=== PATIENT | male | born 1935 | race Caucasian/White ===

== ENCOUNTER 2016-09-24 11:55 | Inpatient (IN) ==
--- NOTE | 2016-09-24 13:13 | PROVIDER DOCUMENTATION ---
This chart was entered by Malia Agrawal Scribe, acting as scribe for Joe Martinez MD. HPI-Musculoskeletal Pain/Inj - GENERAL Chief Complaint: Fall Stated Complaint: Fall Time Seen by Provider: 09/24/16 12:20 Source: patient - HX OF PRESENT ILLNESS-MUSKULOSKELTAL Nature of Presenting Problem: 81 y/o M presents to ED cc of fall. Pt was brought in by EMS. Pt was walking back from [facility] when he tripped and fell. Pt has had recent R hip fracture. Today pt is complain of L mid shaft pain of femur. Pt denies any hip pain. Pt will not move left leg due to pain. When hip is touched pt has no pain. Pt is alert and oriented. Quality of Pain: reports: stabbing (when leg is moved) Onset/Duration: just prior to arrival Timing: other (pain with moving) Modifying Factors: worse with: movement Any recent injury?: Yes (fall) Similar Symptoms Previously?: No Recently seen or treated by another doctor?: No - FALL INJURY Location of Pain/Injury: reports: pelvis (L hip) Pain Radiation: reports: no radiation Reason for Fall: reports: tripped Symptoms prior to fall:: denies: fever/chills/sweaty, chest pain, rapid heart rate, dizzy/lightheaded, headache, seizure Loss of Consciousness: no loss of consciousness Injury Associated Symptoms: reports: trouble walking (L lef pain), other. denies: chest pain, dizziness, joint pain, shortness of breath, vomiting, weakness - HIP/PELVIS PAIN/INJURY Hip Pain Location: reports: hip (L) Pain Radiation: reports: no radiation Context / Method of Injury: reports: fall Associated Symptoms: denies: muscle spasms, numbness in legs/feet, sensory/ motor loss, tingling in legs/feet, weakness in legs/feet Review of Systems - Adult - REVIEW OF SYSTEMS - ADULT Constitutional: denies: chills, fever Eyes: denies: dry eyes, blurred vision, double vision, redness Ears, Nose, Mouth & Throat: denies: ear pain, nose pain Cardiovascular: denies: chest pain, irregular heart rate, orthopnea, palpitations Respiratory: denies: cough, dyspnea on exertion, shortness of breath, wheezing Gastrointestinal: denies: abdominal pain, diarrhea, nausea, vomiting Genitourinary: denies: frequent UTI's, hematuria, hesitency, urinary retention Musculoskeletal: reports: other (L hip/ mid shaft pain). denies: bone pain, back pain, muscle aches Integumentary: denies: hair loss, mole changes, nail changes, skin thickening Neurological: denies: dizziness/vertigo, headache/migraines Past History - Adult - PAST MEDICAL HISTORY-ADULT Review of Records: reports: Old Records Reviewed, Nursing Assessment Review - PRIOR SURGERIES/PROCEDURES Surgical/Procedure History: reports: hernia repair, orthopedic (extremity) (r hip) - PRIOR HOSPITALIZATIONS Prior Hospitalizations: reports: none - IMMUNIZATION STATUS Childhood Immunizations: See Nurse Assessment Flu Vaccine: See Nurse Assessment - FAMILY HISTORY Family History: reviewed, not pertinent - SOCIAL HISTORY Smoking: denies, non-smoker Substance Use: alcohol Alcohol Use Frequency: occasionally Physical Exam-Injury Related - Physical Exam-Injury Related Initial Vital Signs Reviewed: Yes General Appearance: appears well, alert, no apparent distress Eyes: pink conjunctivae Head, Ears, Nose, Mouth & Throat: normocephalic/atraumatic, moist mucous membranes, normal ENT inspection Neck: non-tender, full range of motion, supple Respiratory: chest non-tender, lungs clear, normal breath sounds Cardiovascular: normal peripheral pulses, regular rate, rhythm, no edema Abdominal Exam: normal bowel sounds, non tender, soft Extremity: tenderness (mid shaft L femur), other (L leg no movment due to pain) Integumentary: normal color, warm/dry Neurologic: grossly normal, no motor/sensory deficits Psych/Mental Status: oriented x 3 - Glascow Coma Score Best Eye Response (Fredrick): (4) open spontaneously Best Verbal Response (Fredrick): (5) oriented Best Motor Response (Fredrick): (6) obeys commands [place] Total: 15 Progress - PLAN OF CARE/RESULTS Progress/Plan/Lab Results: Vital Signs - 8 hr 09/24/16 12:04 09/24/16 12:29 Temperature 97.9 F Pulse Rate 48 L 75 Respiratory Rate 20 26 H Blood Pressure 113/52 140/68 O2 Sat by Pulse Oximetry 96 95 Orders Category Date Time Status CHEST-1 VIEW [RAD] Stat Exams 09/24/16 12:44 Completed FEMUR MIN 2 VIEWS LEFT [RAD] Stat Exams 09/24/16 12:29 Completed BNP [PRO B-NATRIURETIC PEPTIDE] Stat Lab 09/24/16 13:37 Uncollected CBC WITH ELECTRONIC DIFF [HEME] Stat Lab 09/24/16 12:28 Uncollected CMP [COMPREHENSIVE METABOLIC PANEL] [CHEM] Stat Lab 09/24/16 12:28 Uncollected PROTIME WITH INR [COAG] Stat Lab 09/24/16 12:50 Uncollected PTT [COAG] Stat Lab 09/24/16 12:50 Uncollected EKG [EKG] Stat Ther 09/24/16 13:36 Ordered PLAN: LABS , XRAY , MONITOR PT. - XRAY 1 XRAY: Left XRAY Study: Hip, Femur 2 XRAY: Bilateral XRAY Study: Chest Impression: Normal XRAY Interpretation: negative - - CONSULTS/PCP/HOSPITALIST Notification #1 *Consult/PCP/Hospitalist*: (ortho) nurse Time Discussed: 13:24 Consult Disposition: other (will have dr patel call back - 1330: Dr. Patel is in surgrey; 1335: Admit to hospitalist) #2 Consult: - Spoke to SHIPPING ROOM SUPERVISOR - Jj Time Discussed: 13:38 Consult Disposition: Admit Departure - Departure Date of Disposition Decision: 09/24/16 Time of Disposition Decision: 13:31 DIAGNOSIS: Hip fracture Qualifiers: Encounter type: initial encounter Fracture type: closed Laterality: left Qualified Code(s): S72.002A - Fracture of unspecified part of neck of left femur , initial encounter for closed fracture Disposition: ADMITTED INPATIENT 09 Certified Medical Emergency: Emergent Condition: Stable Referrals and Follow-Ups: Poli Bragg [Primary Care Provider] - - Critical Care Note This patient required my direct & personal management of CC.: No This chart was documented by the indicated scribe, (Malia Agrawal Scribe) and accurately reflects the services I performed and decisions made by me, Joe Martinez MD, as attested by the provider's signature.
--- NOTE | 2016-09-24 13:30 | Diag Imaging Result Doc PS360 ---
EXAM: CHEST-1 VIEW HISTORY: fall TECHNIQUE: Semiupright COMPARISON: 10/14/2014 FINDINGS: The lungs are well expanded. The heart is not enlarged. The vessels are not distended. There are no infiltrates. No effusion identified. IMPRESSION: Negative exam.. Electronically signed by Bala Wellington 09/24/2016 1:28 PM
--- NOTE | 2016-09-24 13:38 | Diag Imaging Result Doc PS360 ---
EXAM: FEMUR MIN 2 VIEWS LEFT HISTORY: fall/ pain mid shaft of femur TECHNIQUE: Four views COMPARISON: 10/14/2014 FINDINGS: There is a fracture through the femoral neck. Femoral head remains in the acetabulum. Femoral shaft is rotated and slightly superiorly placed. IMPRESSION: Femoral neck fracture Electronically signed by Bala Wellington 09/24/2016 1:36 PM
[2016-09-24 14:00] LABS: MANUAL DIFF NEEDED? NO
[2016-09-24 14:03] LABS: BASO% 0.1 % (0.0-0.8); EOS# 0.05 X1000 (0.0-0.7); EOS% 0.3 % (0.0-10.0); HEMATOCRIT 42.1 % (42.0-52.0); HEMOGLOBIN 14.1 g/dL (14.0-18.0); IMM GRAN# 0.05 X1000 (0.0-0.04); IMM GRAN% 0.3 % (0.0-0.5); LYMPH# 1.47 X1000 (1.2-3.4); LYMPH% 8.9 % (20.5-51.1); MCH 31.5 PG (27-31); MCHC 33.5 g/dL (33-37); MCV 94.2 FL (81-99); MONO# 1.12 X1000 (0.11-0.59); MONO% 6.8 % (1.7-9.3); MPV 10.1 FL (7.4-10.4); NEUT% 83.6 % (42.2-75.2); PLT 267 X1000 (130-400); RBC 4.47 XMIL (4.7-6.1)
[2016-09-24 14:11] LABS: INR 0.99; PROTIME 10.4 Seconds (9.2-11.7); PTT 25.9 Seconds (22.0-36.0)
--- NOTE | 2016-09-24 14:29 | Diag Imaging Result Doc PS360 ---
EXAM: LOWER LEG-LEFT HISTORY: fall TECHNIQUE: Portable left tib-fib, two views COMPARISON: None. FINDINGS: No fracture. No dislocation. IMPRESSION: No acute bony injury. Electronically signed by Bala Wellington 09/24/2016 2:26 PM
[2016-09-24 14:35] LABS: AGAP 11; ALBUMIN 4.2 g/dL (3.5-5.0); ALKALINE PHOSPHATASE 78 U/L (32-122); BUN 12 mg/dL (8-22); CALCIUM 9.5 mg/dL (8.8-10.2); CHLORIDE 102 mmol/L (98-107); COSMO 277; GOT 22 U/L (10-34); GPT 20 U/L (10-44); POTASSIUM 4.1 mmol/L (3.5-5.1); SODIUM 139 mmol/L (136-145); TCO2 26 mmol/L (25-35); TOTAL BILIRUBIN 0.49 mg/dL (0.20-1.00)
[2016-09-24] MEDS ORDERED: MORPHINE IV PRN (15:21)
[2016-09-24] MEDS ORDERED: ZOFRAN IV PRN (15:26)
[2016-09-24] MEDS ORDERED: TYLENOL PO PRN (15:26)
[2016-09-24] MEDS: DILAUDID IV PRN ×3 (15:44→22:05)
[2016-09-24 15:45] LABS: URINE MICRO REVIEW NEEDED? NO; URINE SOURCE CATH
[2016-09-24 15:51] LABS: BILIRUBIN URINE NEGATIVE (NEGATIVE); BLOOD URINE SMALL (NEGATIVE); COLOR YELLOW; GLUCOSE URINE NEGATIVE (NEGATIVE); LEUKOCYTES URINE NEGATIVE (NEGATIVE); NITRITE URINE POSITIVE (NEGATIVE); PH URINE 7.5; PROTEIN URINE 30 mg/dL (NEGATIVE); SP GRAVITY URINE 1.018; TURBIDITY URINE TURBID (CLEAR); UROBILINOGEN URINE NORMAL (NORMAL)
[2016-09-24 15:52] LABS: UR EPITHELIAL CELLS <10 /HPF (<10); URINE BACTERIA 2+ /HPF; URINE CULTURE NEEDED? YES; URINE RBC TNTC /HPF (<10); URINE WBC <10 /HPF (<10)
--- NOTE | 2016-09-24 16:35 | HISTORY AND PHYSICAL ---
CHIEF COMPLAINT: Fall with left hip pain. HISTORY OF PRESENT ILLNESS: Mr. Lakhani is an 81-year-old, male with a history of BPH who had an accidental trip and fall while walking at the [employer] from his assisted living today. He was walking in the grassy area when he had a trip and fall. He denies loss of consciousness. No preceding chest pain, and he did not hit his head. He immediately had left hip pain and came to the ER for evaluation. Left hip x-ray was consistent with left femoral neck fracture. Orthopedics has been consulted and we are going to admit him for further treatment and evaluation. Patient has no other complaints. He denies chest pain, shortness of breath, nausea, vomiting and diarrhea, fevers or chills. It is significant to note that he does have a white count of 16, and we did order a urinalysis on admission and the that has come back positive for urinary tract infection which we are treating with Rocephin. PAST MEDICAL HISTORY: 1. BPH. 2. Right hip fracture requiring repair in 2014. 3. History of transitional cell cancer of the bladder. PAST SURGICAL HISTORY: He has had right hip repair and bladder surgery. SOCIAL HISTORY: Patient denies tobacco, alcohol or drug use. He lives in assisted living. He is and he has strong family support. ALLERGIES: No known drug allergies. FAMILY HISTORY: Noncontributory. REVIEW OF SYSTEMS: Fourteen-point review of systems obtained and found to be negative with the exception of the HPI. ALLERGIES: No known drug allergies. HOME MEDICATIONS: Aspirin 81 mg daily. PHYSICAL EXAMINATION: VITAL SIGNS: Blood pressure is 140/68, heart rate is 75, respiratory rate is 16 , O2 saturation 95% on room air. Temperature is 97.9 degrees. GENERAL: Elderly, male lying in hospital bed. No acute distress. NEUROLOGIC: He is awake, alert, and oriented. He follows commands without focal deficits. HEENT: Head is atraumatic, normocephalic. Pupils equal, round, reactive to light. Oral mucosa is moist. Trachea is midline. No JVD or carotid bruits. CHEST: Clear to auscultation bilaterally. CARDIOVASCULAR: Regular rate and rhythm. S1-S2 is noted. No murmurs, gallops , clicks, rubs. GI: Soft, nondistended, nontender. Bowel sounds positive. EXTREMITIES: Left foot is externally rotated. Neurovascular is intact. No edema. Pulses are diminished and skin is cool to touch. DIAGNOSTIC DATA: Left femur x-ray shows femoral neck fracture. Chest x-ray is negative for acute process. Laboratory data is reviewed. WBC 16.53, hemoglobin 14, hematocrit 42 , platelet count 267,000. INR 0.99. Sodium 139, potassium 4.1, chloride 102, CO2 26, anion gap is 11, BUN 12, creatinine 1.1. Glucose 95, calcium 10.5, AST 22, ALT 20, alkaline phosphatase 78, proBNP 675. Urine is positive for UTI. ASSESSMENT/PLAN: 1. Left hip fracture: Patient has been admitted. We will keep him nothing per oral after midnight. Add pain medication and consult Orthopedics. He will need a social work and physical therapy for discharge. 2. Urinary tract infection: Rocephin has been started, urine cultures are pending. 3. Deep venous thrombosis prophylaxis. We will start Lovenox after surgery. Further recommendations to follow. Dictated by ADORE Caldwell for Radha Quinteros MD cc: ADORE Caldwell MD The patient was seen and examined by me. I agree with the assessment and plan as dictated. JULIANE
--- NOTE | 2016-09-24 17:26 | CONSULTATION ---
DATE OF CONSULTATION: 09/24/2016 ADMITTING PHYSICIAN: Hospitalist CONSULTING PHYSICIANS: Akbar Shukla MD CHIEF COMPLAINT: Left hip pain. HISTORY OF PRESENT ILLNESS: Mr. Lakhani is an 81-year-old white male who experienced a mechanical fall this afternoon walking to the store. He was unable to bear weight. He was brought to the emergency room via ambulance for radiographic evaluation of the left hip, revealing findings consistent with a left femoral neck fracture. He denies any associated injuries, loss of consciousness, head trauma, or visual disturbances. PRIMARY CARE PROVIDER: Poli Bragg MD ALLERGIES: No known drug allergies. PAST MEDICAL HISTORY: 1. Benign prostate prostatic hypertrophy. 2. Unknown history of bladder cancer. PAST SURGICAL HISTORY: 1. Right bipolar hemiarthroplasty in 2014. 2. Transurethral resection of the prostate. 3. Bilateral inguinal herniorrhaphies. SOCIAL HISTORY: The patient is an active 81-year-old. He maintains a residence at a half-way home. He is a nonsmoker. CURRENT MEDICATIONS: Aspirin 81 mg by mouth daily. REVIEW OF SYSTEMS: HEENT: No known history of stroke or cerebrovascular disease. He does have difficulty hearing. Cardiac: Denies any history of coronary artery disease or valvular heart disease. Denies chest pain, pressure, or other anginal equivalent. Pulmonary: The patient is a nonsmoker with no reported chronic lung disease. Gastrointestinal: He is troubled sometimes with intermittent constipation. Denies recent nausea, vomiting, diarrhea, or loss of weight unintentionally. Genitourinary: He has a history of benign prostatic hypertrophy. He has had a transurethral resection. He has a questionable history of bladder cancer. Neurological: Denies extremity radicular pain, weakness, or paresthesia. Musculoskeletal: He is here today for a left hip injury, which is proven to be a left femoral neck fracture. He has previously underwent a right bipolar hip hemiarthroplasty. PHYSICAL EXAMINATION: General: The patient is resting comfortably in bed. He is articulate. He has family at his bedside. He is able answer all questions fully. HEENT: Head is normocephalic and atraumatic. Pupils are equal, round, react to light. Nares are patent. Throat without exudate. Neck: Supple. Cardiovascular: Has a slow rate. He has regular rhythm. No murmurs or gallops are detected. Pulmonary: The patient's lungs are clear bilaterally. Gastrointestinal: The abdomen is flat. Bowel sounds are present. It is nontender. Genitourinary: Not examined. Neurological: Gross motor function is intact with good sensation to soft touch. Musculoskeletal: Left hip no gross deformity edema or ecchymosis is noted. He has a good peripheral pulse. IMPRESSION: Left femoral neck fracture. PLAN: Left bipolar hemiarthroplasty when medically cleared. The risks and benefits were explained to the patient including the risk of anesthesia, , bleeding, infection, damage to tendons, ligaments, nerves, blood vessels, possibility of blood clots and other imponderables were discussed, and the patient wishes to proceed with operative management when indicated. Thank you for including us in the care of Mr. Lakhani. We will continue to follow him with you as necessary and when medically cleared we will proceed with surgery. Dictated by EMMETT Sanchez for Akbar Shukla MD cc: EMMETT Sanchez MD
--- NOTE | 2016-09-24 17:28 | CONSULTATION ---
DATE OF CONSULTATION: 09/24/2016 INDICATION: Abnormal EKG. HISTORY OF PRESENT ILLNESS: Mr. Lakhani is an 81-year-old white male with a history of BPH who apparently was walking from [facility] to his assisted living facility. He apparently slipped and had a fall and injured his left hip. No loss of consciousness. No chest pain and no heart racing preceded the event. Since that time, he has had no issues. He denies any previous history of syncope. He is currently pending operative repair of his left hip fracture. PAST MEDICAL HISTORY: 1. Significant for BPH. 2. History of transitional cell cancer of the bladder. SOCIAL HISTORY: No tobacco use alcohol or drug use. Currently lives in assisted living facility. He is . Daughter is present at the bedside. FAMILY HISTORY: Significant for hypertension. REVIEW OF SYSTEMS: A 10 system review of systems is negative except for those things mentioned in HPI. PHYSICAL EXAMINATION: Vital signs: Afebrile. His heart rates have been somewhat variable, being anywhere from the 40s to 70s. His blood pressure is 140/68. Generally: He is in no acute distress. HEENT: Oropharynx is moist. Normal dentition. Eye examination shows pink conjunctivae. White sclerae. Neck: Examination shows no obvious thyromegaly or thyroid tenderness. Cardiovascular: He sounds to be in a regular rate and rhythm. He is somewhat bradycardic, but regular. No obvious murmurs. He has no S3. He has no lower extremity edema. Chest: Exam is clear to auscultation bilaterally. No increased work of breathing. Abdomen: Soft, nontender, nondistended. He has no obvious organomegaly. Skin: Warm and dry throughout without any rashes. Neurological: He is moving all extremities well. Cranial nerves 2-12 are intact without any sensation deficits. Psychiatric: Alert, oriented and pleasant. He has a normal mood and affect. PERTINENT DATA: The patient had an EKG performed at 1440. This demonstrated sinus rhythm with what appeared to be a 2:1 AV block with sinus rhythm with an atrial rate of 88 beats per minute and a ventricular rate of 44 beats per minute and 2:1 AV block. Subsequently, telemetry at 1546 demonstrated an episode a Wenckebach occurring that was clearly demonstrated. Laboratory data shows a white count is 16.5, hematocrit 42, platelet count of 267,000. INR 0.9. Sodium 139, potassium 4.1, his BUN is 12, creatinine 1.1. His proBNP was 675. ASSESSMENT: 1. Left hip fracture status post fall. 2. Second-degree atrioventricular block type 1 (Wenckebach). PLAN: At this point, I would recommend no delay in his upcoming surgery. He has a second-degree atrioventricular block type 1 which is generally benign. Considering his baseline bradycardia from tion-no-rcqm we can proceed with an outpatient heart monitor. We will also check a thyroid stimulating hormone in the morning. He is not on any atrioventricular christi blocking agents which I would continue to avoid. cc: Elian Smith MD
[2016-09-24 18:13] LABS: FREE T4 0.91 ng/dL (0.93-1.70)
[2016-09-24] MEDS: ROCEPHIN 1 GM/NS 1 GM/50 ML IVPB IV SCH (21:02)
[2016-09-25] MEDS: DILAUDID IV PRN ×3 (03:21→12:58)
--- NOTE | 2016-09-25 05:22 | EKG Report ---
Test Performed on : 09/24/2016 5:04:41 PM Test Reason : 2nd degree block Blood Pressure : / mmHG Vent. Rate : 073 BPM Atrial Rate : 073 BPM P-R Int : 210 ms QRS Dur : 132 ms QT Int : 464 ms P-R-T Axes : 050 074 -69 degrees QTc Int : 511 ms Sinus rhythm. with 1st degree AV block. with occasional premature ventricular complexes. Right bundle branch block T wave abnormality, consider inferolateral ischemia Abnormal ECG When compared with ECG of 24-SEP-2016 14:40, (Unconfirmed) Significant changes have occurred Confirmed by Alex ROSAS, David Rosado ([id number]) on 09/26/2016 9:13:23 AM
[2016-09-25 05:54] LABS: HEMATOCRIT 42.4 % (42.0-52.0); HEMOGLOBIN 13.8 g/dL (14.0-18.0); MCH 31.4 PG (27-31); MCHC 32.5 g/dL (33-37); MCV 96.4 FL (81-99); MPV 10.4 FL (7.4-10.4); RBC 4.4 XMIL (4.7-6.1)
[2016-09-25 06:17] LABS: AGAP 14; BUN 14 mg/dL (8-22); CALCIUM 8.8 mg/dL (8.8-10.2); CHLORIDE 103 mmol/L (98-107); COSMO 286; POTASSIUM 4.2 mmol/L (3.5-5.1); SODIUM 143 mmol/L (136-145); TCO2 26 mmol/L (25-35)
--- NOTE | 2016-09-25 06:57 | EKG Report ---
Test Performed on : 09/25/2016 06:14:37 AM Test Reason : bradycardia Blood Pressure : / mmHG Vent. Rate : 053 BPM Atrial Rate : 053 BPM P-R Int : 212 ms QRS Dur : 112 ms QT Int : 428 ms P-R-T Axes : 056 -53 071 degrees QTc Int : 401 ms Sinus bradycardia. with 1st degree AV block. with fusion complexes Left axis deviation Incomplete right bundle branch block Left ventricular hypertrophy with repolarization abnormality Inferior infarct , age undetermined Abnormal ECG When compared with ECG of 24-SEP-2016 17:04, (Unconfirmed) fusion complexes are now present premature ventricular complexes. are no longer present Incomplete right bundle branch block has replaced Right bundle branch block Inferior infarct is now present Confirmed by Alex ROSAS, David Rosado ([id number]) on 09/26/2016 9:13:37 AM
--- NOTE | 2016-09-25 16:44 | PROGRESS NOTE ---
DATE: 09/25/2016 SUBJECTIVE: The patient is resting comfortably in bed. He does complain of pain in his left leg. OBJECTIVE: Vital Signs: Temperature 97 degrees, blood pressure 162/60, heart rate 34, respirations 12, O2 saturations 94% on room air. General: This is an elderly male, lying in bed in no acute distress. Head: Normocephalic, atraumatic. Heart: S1, S2. Normal. Bradycardic. Lungs: Clear to auscultation bilaterally. No wheezes, no rales, no rhonchi. Abdomen: Positive bowel sounds. Soft, nontender, nondistended. Extremities: No edema. No cyanosis. No calf tenderness. Neurologic: The patient is hard of hearing, but alert and oriented x3. LABS: White blood cell count 8.8, hemoglobin 13, hematocrit 42, platelets 237. Sodium 143, potassium 4.2, chloride 103 CO2 23, BUN 14, creatinine 1, glucose 100. ASSESSMENT AND PLAN: 1. Left femoral neck fracture. The patient is scheduled to undergo surgery today. Management as per the orthopedic team. 2. Urinary tract infection. Continue on Rocephin. The urine culture is currently pending. 3. Bradycardia. The patient has been seen by the jacker feeder. We will continue to monitor the patient on telemetry. Cardiology is following. 4. Gastrointestinal prophylaxis. The patient will be placed on intravenous Protonix. cc: Radha Quinteros MD
[2016-09-25] MEDS ORDERED: NEOSPORIN G.U. IRRIGANT ONE (16:46)
[2016-09-25] MEDS ORDERED: KEFZOL 1 GM/D5W 1 GM/50 ML IVPB ONE (16:57)
[2016-09-25] MEDS ORDERED: DIPRIVAN 1% ONE (19:01)
[2016-09-25] MEDS ORDERED: FENTANYL ONE (19:01)
[2016-09-25] MEDS ORDERED: ZOFRAN IV PRN (19:07)
[2016-09-25] MEDS ORDERED: MORPHINE IV PRN (19:07)
[2016-09-25] MEDS ORDERED: HALDOL IV PRN (19:07)
[2016-09-25] MEDS ORDERED: MILK OF MAGNESIA PO PRN (19:07)
--- NOTE | 2016-09-25 19:12 | OPERATIVE NOTE ---
PROCEDURE DATE: 09/25/2016 PREOPERATIVE DIAGNOSIS: Left displaced femoral neck fracture. POSTOPERATIVE DIAGNOSIS: Left displaced femoral neck fracture. PROCEDURE PERFORMED: Left bipolar hemiarthroplasty with DePuy Corail size 13 press-fit stem, a 28 + 1.5 femoral head, and a 28 x 53 bipolar head. SURGEON: Akbar Shukla MD SAMPLE PATTERNMAKER: Kristan Giles ANESTHESIA: General. INTRAVENOUS FLUIDS: Lactated Ringer's 1300 mL. ESTIMATED BLOOD LOSS: 200 mL. COMPLICATIONS: None. INDICATIONS FOR PROCEDURE: The patient is a pleasant 81-year-old male who is 1 day status post a fall sustaining a left displaced femoral neck fracture. He was admitted to the hospital, and after obtaining preoperative medical clearance, the recommendation to proceed to proceed with left bipolar hemiarthroplasty of the left hip was offered. The risks and benefits of surgery were explained including the risks of anesthesia, , bleeding, infection, failure to relieve pain, postoperative stiffness, nerve injury, blood clots, and other imponderables. All questions were answered. The patient and family wished to proceed with surgery. DETAILS OF OPERATION: The patient was taken to the operating room and placed supine on operating room table. Once adequate anesthesia was obtained, the patient was placed in a right lateral decubitus position on a beanbag with an axillary roll. The left hip was subsequently prepped and draped in the usual sterile fashion. A standard lateral incision was made along the hip, and a posterior approach was performed. The fascia nir was incised in line with the surgical incision. A Charnley retractor was placed. Elevation of the soft tissue was then performed. The piriformis tendon was identified, and a stay suture was placed. The piriformis tendon along with the short external rotators were elevated and retracted posteriorly. A T-shaped capsulotomy was then performed. Stay sutures were placed at the ends of the articular surface. A corkscrew was used to remove the femoral head. Attention was then turned to the proximal to the femur. A box cutting guide was placed, followed by a handle sewer, into the intramedullary canal. Sequential broaching was then performed up to a size 13 press-fit stem. It was countersunk with a 12, and a calcar planer was placed. The size 13 broach had a good fit. A trial head and neck length sizes were performed and a 28 +1.5 femoral head with a 28 x 53 bipolar head had good stability and good range of motion. The trial implants were removed. Copious irrigation was performed with antibiotic pulsatile lavage. A size 13 DePuy Corail press-fit stem was impacted in position, and it had a good fit. A 28 +1.5 femoral head with a 28 x 53 bipolar head were impacted on the stem. The hip was reduced, carried through range of motion. It had good range of motion. The wound was copiously irrigated once again with antibiotic pulsatile lavage. A number 1 Vicryl was used to repair the arthrotomy, followed by number 1 Vicryl to repair the piriformis tendon. The wound was copiously irrigated once again. This was followed by removal of the Charnley retractor. Number 1 Vicryl was used to repair the fascia nir, along with the gluteus anam, in a running fashion. A -0 Vicryl was then used to repair the subcutaneous tissue, followed by skin shaji. Adaptic, sterile 4 x 4's, ABD pad, and tape were applied to the left hip, followed by abduction pillow. The patient tolerated the procedure well with no complications. He was transferred to the recovery room in stable condition. cc: Akbar Shukla MD MTDD
[2016-09-25] MEDS ORDERED: NS 1,000 ML ONE (19:24)
--- NOTE | 2016-09-25 20:40 | Diag Imaging Result Doc PS360 ---
EXAM: HIP 1 VIEW LEFT - 09/25/2016 HISTORY: post op TECHNIQUE: AP left hip COMPARISON: 09/24/2016 FINDINGS: There are postsurgical changes of recent left total hip prosthesis placement. Alignment appears satisfactory. There are no complicating features identified. IMPRESSION: Satisfactory postoperative exam. Electronically signed by Clarke Blount 09/25/2016 8:37 PM
[2016-09-25 21:44] LABS: AGAP 17; BUN 17 mg/dL (8-22); CALCIUM 8.5 mg/dL (8.8-10.2); CHLORIDE 99 mmol/L (98-107); COSMO 275; POTASSIUM 4.7 mmol/L (3.5-5.1); SODIUM 136 mmol/L (136-145); TCO2 20 mmol/L (25-35)
[2016-09-25] MEDS: COLACE PO SCH (21:44)
[2016-09-25] MEDS: TYLENOL PO SCH (21:44)
[2016-09-25] MEDS: PROTONIX IV SCH (21:45)
[2016-09-25] MEDS: SODIUM CHLORIDE 0.9% INJ SCH (21:45)
[2016-09-25] MEDS: NS 1,000 ML IV SCH (21:46)
[2016-09-25 21:49] LABS: CK PROFILE 368 U/L (24-204)
[2016-09-25] MEDS: ROCEPHIN 1 GM/NS 1 GM/50 ML IVPB IV SCH (21:56)
[2016-09-25 22:05] LABS: CK INDEX 1.7 (0.0-2.5); CK-MB 6.17 ng/mL (0.0-5.0)
--- NOTE | 2016-09-26 05:16 | EKG Report ---
Test Performed on : 09/25/2016 7:57:49 PM Test Reason : Runs of V-tach Blood Pressure : / mmHG Vent. Rate : 083 BPM Atrial Rate : 043 BPM P-R Int : 204 ms QRS Dur : 104 ms QT Int : 430 ms P-R-T Axes : 063 -56 053 degrees QTc Int : 505 ms Marked sinus bradycardia. with frequent and consecutive premature ventricular complexes. 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 are now present premature supraventricular complexes. are no longer present Right bundle branch block is no longer present Confirmed by Alex ROSAS, David Rosado ([id number]) on 09/26/2016 9:14:40 AM
[2016-09-26] MEDS: OXY IR PO PRN ×3 (05:26→13:51)
[2016-09-26] MEDS: TYLENOL PO SCH ×3 (05:27→18:50)
[2016-09-26] MEDS: XARELTO PO SCH (05:27)
--- NOTE | 2016-09-26 05:57 | PROGRESS NOTE ---
DATE: 09/26/2016 SUBJECTIVE: The patient is a pleasant 81-year-old male who is one day status post left bipolar hemiarthroplasty. He is currently resting comfortably this morning. He was monitored in the ICU last night. He has been stable through the night and doing well. The patient was placed in the ICU postoperatively for closer cardiac monitoring. He has remained stable through the night. PHYSICAL EXAMINATION: Patient is awake, alert and cooperative with exam. The left lower extremity shows his dressing is intact. Calf is soft. He is neurovascularly distally. He is able to actively dorsiflex and plantar flex. He has active dorsiflexion and plantar flexion. LABORATORY DATA: His labs are pending. IMPRESSION: Postop day #1 status post left bipolar hemiarthroplasty. PLAN: At this point, we will begin therapy once cleared from medical and cardiac standpoint. We will consult Drivability Technician for discharge planning. cc: Akbar Shukla MD
[2016-09-26] MEDS: NS 1,000 ML IV SCH ×2 (06:12→08:47)
[2016-09-26] MEDS: PROTONIX IV SCH ×2 (06:12→21:17)
--- NOTE | 2016-09-26 07:05 | EKG Report ---
Test Performed on : 09/26/2016 06:10:29 AM Test Reason : Elevated CK Blood Pressure : / mmHG Vent. Rate : 065 BPM Atrial Rate : 096 BPM P-R Int : 000 ms QRS Dur : 108 ms QT Int : 532 ms P-R-T Axes : 055 -72 081 degrees QTc Int : 553 ms Sinus rhythm. with 2nd degree AV block (Mobitz I). Left axis deviation Incomplete right bundle branch block Inferior infarct (cited on or before 25-SEP-2016) Prolonged QT Abnormal ECG When compared with ECG of 25-SEP-2016 19:57, (Unconfirmed) premature ventricular complexes. are no longer present Sinus rhythm. is now with 2nd degree AV block (Mobitz I). Questionable change in initial forces of Inferior leads Confirmed by Alex ROSAS, David Rosado ([id number]) on 09/26/2016 9:14:51 AM
[2016-09-26 07:55] LABS: HEMATOCRIT 34.1 % (42.0-52.0); HEMOGLOBIN 11.1 g/dL (14.0-18.0); MCH 31.1 PG (27-31); MCHC 32.6 g/dL (33-37); MCV 95.5 FL (81-99); MPV 11.2 FL (7.4-10.4); RBC 3.57 XMIL (4.7-6.1)
[2016-09-26] MEDS ORDERED: DECADRON ONE (08:02)
[2016-09-26] MEDS ORDERED: LR 1,000 ML ONE (08:02)
[2016-09-26] MEDS ORDERED: XYLOCAINE-MPF 2% ONE (08:02)
[2016-09-26] MEDS ORDERED: ZOFRAN ONE (08:02)
[2016-09-26 08:13] LABS: CALCIUM 8.3 mg/dL (8.8-10.2); POTASSIUM 4.9 mmol/L (3.5-5.1)
[2016-09-26 08:35] LABS: CK INDEX 1.5 (0.0-2.5); CK-MB 7.92 ng/mL (0.0-5.0)
[2016-09-26] MEDS: FERROUS SULFATE PO SCH (08:47)
--- NOTE | 2016-09-26 13:41 | PROGRESS NOTE ---
DATE: 09/26/2016 SUBJECTIVE: The patient is resting comfortably in bed. He has no complaints. OBJECTIVE: Vital Signs: Temperature 98 degrees, blood pressure 112/56, heart rate 88, respirations 21, and O2 saturation is 97% on 2L nasal cannula. General: This is an elderly male, sitting up in bed in no acute distress. HEENT: Head normocephalic, atraumatic. Heart: S1 and S2 normal. Regular rate and rhythm. Lungs: Clear to auscultation bilaterally. No wheezes. No rales. No rhonchi. Abdomen: Positive bowel sounds. Soft, nontender, nondistended. Extremities: No edema. No cyanosis. No calf tenderness. Neurologic: The patient is alert and oriented x3. LABORATORIES: White blood cell count 12, hemoglobin 11, hematocrit 34, platelets 232,000. Sodium 140, potassium 4.9, chloride 104, CO2 of 22, BUN 23, creatinine 1.2, glucose 117. ASSESSMENT AND PLAN: 1. Status post left bipolar hemiarthroplasty. Management as per the orthopedic surgeon. 2. Urinary tract infection. Continue on the current IV antibiotic therapy. The urine culture is growing Gram-negative rods. 3. Leukocytosis. Most likely secondary to the urinary tract infection. Continue with IV antibiotic therapy. 4. Second degree type 1 AV block. Asymptomatic. 5. Gastrointestinal prophylaxis. Continue on Protonix. 6. Deep vein thrombosis prophylaxis. The patient is now on Xarelto. Transfer to the surgical floor. cc: Radha Quinteros MD MTDD
[2016-09-26 13:52] LABS: CK INDEX 1.4 (0.0-2.5); CK-MB 8.32 ng/mL (0.0-5.0)
--- NOTE | 2016-09-26 13:54 | PROGRESS NOTE ---
DATE: 09/26/2016 CHIEF COMPLAINT: Irregular heartbeat and pain in the left hip. SUBJECTIVE: Mr. Lakhani had an uneventful night. He is still hurting in the left hip. His telemetry shows episodes of a first and second AV block and some episodes of aberrant conduction probably rate related bundle branch block. OBJECTIVE: Vital signs: Blood pressure is 121/52, temperature 98.8, pulse 62, and respirations 18. General: The patient is very hard of hearing. He is awake, alert, and follows commands. HEENT: Unremarkable. Chest: Clear to auscultation and percussion. Cardiac: Heart sounds are regular and rhythmic. He does have some periods of pauses. Abdomen: The abdomen is nontender. No masses or hepatomegaly. Extremities: The extremities show very good pulses distally. Neurological: Hard of hearing. Follows commands. LABORATORY DATA: Blood work today shows a hemoglobin of 11.1. Hematocrit is 34.1. Sodium is 140, potassium 4.9, BUN 23, and creatinine 1.2. ProBNP is 534. Troponin is normal. IMPRESSION AND PLAN: 1. Patient who is the first day postop following orthopaedic surgery of left bipolar hemiarthroplasty with a DePuy Corail size [address] Press-[address] stem per Dr[address] Shukla. The reason for it was a left displaced femoral neck fracture. 2. Patient with episodes of second degree type 1 or Wenckebach type of second degree atrioventricular block, asymptomatic. 3. 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 RECOMMENDATIONS: From a cardiology view point no specific intervention is warranted. The patient may be transferred to the [facility] with a monitor unit. No specific pharmacological therapy is required for his cardiac arrhythmia which appears to be benign at this point. Thank you for asking us to participate in this evaluation. Please call us if further assistance is needed. cc: Mat Fallon MD
--- NOTE | 2016-09-26 18:38 | ECHO REPORT ---
ORDER DATE: 09/24/2016 INTERPRETING PHYSICIAN: Dr. Fallon REQUESTING PHYSICIAN: CLINICAL INDICATIONS: An 81-year-old with second-degree AV block, bladder cancer, post hip surgery. M-MODE MEASUREMENTS: Right ventricle: 2.7 cm. Left ventricle end diastole: 4.8 cm. Left ventricle end systole: 3.3 cm. Posterior wall: 1.2 cm. Interventricular septum: 1.2 cm. Left atrium: 4.2 cm. Aortic root: 4.1 cm. SUMMARY OF 2-DIMENSIONAL IMAGING: The left ventricular chamber is moderately enlarged. The global ejection fraction is normal, estimated at 65%. There is some atypical contractility of the interventricular septum. Some "septal bounce" is noted from time to time. The patient seems to have a second-degree AV block of the Wenckebach type with some dropped beats. The mitral valve looks normal. Color flow mapping indicates a mild degree of regurgitation. Pulse wave Doppler of mitral inflow is normal. Tissue Doppler of septal and lateral mitral annulus averages 12 cm per second. Pulmonary venous flow is normal. The aortic valve looks normal. Color flow mapping indicates a mild degree of regurgitation. The tricuspid valve shows trace regurgitation. The inferior vena cava was not visualized on this study. The pulmonic valve looks normal. Color flow mapping indicates a mild degree of regurgitation. The pulmonary pressure is grossly estimated at 31 mmHg. There is no pericardial effusion, masses or thrombus. IMPRESSION: In summary, this study shows: 1. A moderately enlarged left ventricle with preserved systolic function. Ejection fraction 65%. Questionable atypical contractility of the interventricular septum, probably related to a bundle branch block type of phenomenon intermittently. 2. Very mild degree of mitral and pulmonic regurgitation. 3. Mild degree of aortic regurgitation. There is no aortic stenosis. 4. There is no diastolic dysfunction. 5. The pulmonary systolic pressure is estimated at 31 mmHg. Clinical correlation recommended. cc: MD Radha Ballesteros MD
[2016-09-26] MEDS: SODIUM CHLORIDE 0.9% INJ SCH (21:16)
[2016-09-26] MEDS: ROCEPHIN 1 GM/NS 1 GM/50 ML IVPB IV SCH (21:16)
[2016-09-26] MEDS: DULCOLAX PR SCH (21:17)
[2016-09-26] MEDS: COLACE PO SCH (21:17)
[2016-09-27] MEDS: TYLENOL PO SCH ×3 (04:39→18:29)
[2016-09-27] MEDS: XARELTO PO SCH ×2 (04:39→06:49)
[2016-09-27 06:40] LABS: HEMATOCRIT 29.9 % (42.0-52.0); HEMOGLOBIN 9.7 g/dL (14.0-18.0); MCH 31.6 PG (27-31); MCHC 32.4 g/dL (33-37); MCV 97.4 FL (81-99); RBC 3.07 XMIL (4.7-6.1)
[2016-09-27 07:09] LABS: AGAP 12; BUN 21 mg/dL (8-22); CALCIUM 8.3 mg/dL (8.8-10.2); CHLORIDE 104 mmol/L (98-107); COSMO 283; POTASSIUM 4.7 mmol/L (3.5-5.1); SODIUM 140 mmol/L (136-145); TCO2 24 mmol/L (25-35)
[2016-09-27] MEDS: SODIUM CHLORIDE 0.9% INJ SCH ×2 (08:49→20:00)
[2016-09-27] MEDS: FERROUS SULFATE PO SCH (08:49)
[2016-09-27] MEDS: PROTONIX IV SCH ×2 (08:49→20:00)
[2016-09-27] MEDS: OXY IR PO PRN ×2 (08:55→18:32)
--- NOTE | 2016-09-27 10:13 | PROGRESS NOTE ---
DATE: 09/27/2016 SUBJECTIVE: Mr. Lakhani is lying in bed this morning. He is having a little bit of abdominal pain and is having difficulty using the bathroom. He has not had a bowel movement in several days. OBJECTIVE: Left lower extremity exam: Dressing is clean, dry, and intact. He is neurovascularly intact left lower extremity with good dorsiflexion and plantar flexion of the foot and ankle. Good sensation to light touch to the foot as well. ASSESSMENT: Status post left hip hemiarthroplasty. PLAN: I discussed with the nursing service about trying to get Mr. Lakhani to have a bowel movement. They are going to continue to work with him on that. I think that will make him actually feel a lot better. I will continue to follow him. cc: Rajiv Cm MD
[2016-09-27] MEDS ORDERED: NS 500 ML IV ONE (11:52)
[2016-09-27] MEDS: NS 1,000 ML IV SCH ×2 (12:44→23:36)
--- NOTE | 2016-09-27 15:47 | PROGRESS NOTE ---
DATE: 09/27/2016 SUBJECTIVE: The patient is resting comfortably in bed this morning. He has no complaints at this time. OBJECTIVE: Vital Signs: Temperature 98 degrees, blood pressure 116/41, heart rate 102, respirations 18, O2 saturation 96% on room air. General: This is an elderly male, lying in bed in no acute distress. Head: Normocephalic, atraumatic. Heart: S1 and S2 normal. Regular rate and rhythm. Lungs: Clear to auscultation bilaterally. No wheezes. No rales. No rhonchi. Abdomen: Positive bowel sounds. Soft, nontender, nondistended. Extremities: No edema. No cyanosis. No calf tenderness. Neurologic: The patient is alert and oriented x3. LABORATORY: White blood cell count 12, hemoglobin 9.7, hematocrit 29, platelets 191,000. Sodium 140, potassium 4.7, chloride 104, CO2 of 24, BUN 21, creatinine 1, glucose 105: ASSESSMENT AND PLAN: 1. Status post left bipolar hemiarthroplasty. Continue management as per the orthopedic surgeon. Physical Therapy is following. 2. Urinary tract infection secondary to Pseudomonas. Will switch the patient to cefepime. 3. Second-degree, type 1 atrioventricular block. Asymptomatic. 4. Hypotension. Will start the patient on maintenance fluid. 5. Gastrointestinal prophylaxis. Continue on Protonix. 6. Deep vein thrombosis prophylaxis. Continue on Xarelto. 7. Continue with physical therapy. 8. Disposition: The patient will be discharged to rehab this coming week. cc: Radha Quinteros MD
[2016-09-27] MEDS: MAXIPIME 1 GM/NS 1 GM/50 ML IVPB IV SCH (18:32)
[2016-09-27] MEDS: COLACE PO SCH (20:00)
[2016-09-27] MEDS: DULCOLAX PR SCH (20:00)
[2016-09-28] MEDS: MAXIPIME 1 GM/NS 1 GM/50 ML IVPB IV SCH ×2 (03:15→15:31)
[2016-09-28] MEDS: TYLENOL PO SCH ×2 (03:15→10:22)
[2016-09-28] MEDS: XARELTO PO SCH (05:56)
[2016-09-28 06:10] LABS: MANUAL DIFF NEEDED? NO
[2016-09-28 06:23] LABS: BASO% 0.1 % (0.0-0.8); EOS# 0.12 X1000 (0.0-0.7); EOS% 1.2 % (0.0-10.0); HEMATOCRIT 27.9 % (42.0-52.0); HEMOGLOBIN 9.1 g/dL (14.0-18.0); IMM GRAN# 0.03 X1000 (0.0-0.04); IMM GRAN% 0.3 % (0.0-0.5); LYMPH# 1.43 X1000 (1.2-3.4); LYMPH% 13.9 % (20.5-51.1); MCH 31.1 PG (27-31); MCHC 32.6 g/dL (33-37); MCV 95.2 FL (81-99); MONO# 1.34 X1000 (0.11-0.59); MPV 10.8 FL (7.4-10.4); NEUT% 71.5 % (42.2-75.2); PLT 207 X1000 (130-400); RBC 2.93 XMIL (4.7-6.1)
[2016-09-28 07:09] LABS: AGAP 11; BUN 14 mg/dL (8-22); CALCIUM 8.1 mg/dL (8.8-10.2); CHLORIDE 109 mmol/L (98-107); COSMO 288; POTASSIUM 4.3 mmol/L (3.5-5.1); SODIUM 144 mmol/L (136-145); TCO2 24 mmol/L (25-35)
[2016-09-28] MEDS: FERROUS SULFATE PO SCH (08:19)
[2016-09-28] MEDS: PROTONIX IV SCH ×2 (08:19→21:56)
[2016-09-28] MEDS: SODIUM CHLORIDE 0.9% INJ SCH ×2 (08:19→21:56)
[2016-09-28] MEDS: OXY IR PO PRN ×2 (08:22→18:21)
--- NOTE | 2016-09-28 16:34 | PROGRESS NOTE ---
DATE: 09/28/2016 SUBJECTIVE: The patient is resting comfortably in bed. He states that he is ready to go to rehab. OBJECTIVE: Vital Signs: Temperature 98 degrees, blood pressure 116/41, heart rate 102, respirations 18, O2 saturation 94% on room air. General: This is an elderly male lying in bed in no acute distress. Head: Normocephalic, atraumatic. Heart: S1, S2. Normal. Regular rate and rhythm. Lungs: Clear to auscultation bilaterally. No wheezes, no rales. No rhonchi. Abdomen: Positive bowel sounds. Soft, nontender, nondistended. Extremities: No edema. No cyanosis. No calf tenderness. Neurologic: The patient is alert, oriented x3. LABS: Reviewed. ASSESSMENT AND PLAN: 1. Status post left bipolar hemiarthroplasty. Continue with physical therapy. 2. Urinary tract infection secondary to Pseudomonas. Continue on cefepime. 3. Second-degree arteriovenous block type 1. Asymptomatic. 4. Gastrointestinal prophylaxis. Continue on Protonix. 5. Deep vein thrombosis prophylaxis. Continue on Xarelto. 6. Disposition. The patient is stable for discharge to rehab. The patient will be going to [facility]. cc: Radha Quinteros MD
[2016-09-29] MEDS: MAXIPIME 1 GM/NS 1 GM/50 ML IVPB IV SCH (03:08)
--- NOTE | 2016-09-29 05:29 | EKG Report ---
Test Performed on : 09/27/2016 06:32:13 AM Test Reason : abnormal telemetry Blood Pressure : / mmHG Vent. Rate : 093 BPM Atrial Rate : 107 BPM P-R Int : 186 ms QRS Dur : 116 ms QT Int : 420 ms P-R-T Axes : 027 057 -78 degrees QTc Int : 522 ms Sinus tachycardia. with 2nd degree AV block (Mobitz II). with fusion complexes RSR' or QR pattern in V1 suggests right ventricular conduction delay ST \T\ Marked T wave abnormality, consider inferior ischemia ST \T\ Marked T wave abnormality, consider anterolateral ischemia Prolonged QT Abnormal ECG When compared with ECG of 26-SEP-2016 06:10, Significant changes have occurred Confirmed by Alex ROSAS, David Rosado ([id number]) on 09/29/2016 7:57:07 AM
[2016-09-29] MEDS: XARELTO PO SCH (06:00)
[2016-09-29 06:19] LABS: MANUAL DIFF NEEDED? NO
[2016-09-29 06:45] LABS: AGAP 11; BUN 12 mg/dL (8-22); CALCIUM 8.3 mg/dL (8.8-10.2); CHLORIDE 104 mmol/L (98-107); COSMO 279; POTASSIUM 4.2 mmol/L (3.5-5.1); SODIUM 140 mmol/L (136-145); TCO2 25 mmol/L (25-35)
[2016-09-29] MEDS: FERROUS SULFATE PO SCH (08:28)
[2016-09-29] MEDS: SODIUM CHLORIDE 0.9% INJ SCH (08:28)
[2016-09-29] MEDS: PROTONIX IV SCH (08:28)
[2016-09-29] MEDS: OXY IR PO PRN ×2 (08:37→12:57)
[2016-09-29 08:50] LABS: BASO% 0.2 % (0.0-0.8); EOS# 0.22 X1000 (0.0-0.7); EOS% 2.1 % (0.0-10.0); HEMATOCRIT 27.7 % (42.0-52.0); IMM GRAN# 0.02 X1000 (0.0-0.04); IMM GRAN% 0.2 % (0.0-0.5); LYMPH# 1.44 X1000 (1.2-3.4); LYMPH% 13.7 % (20.5-51.1); MCHC 32.5 g/dL (33-37); MCV 95.5 FL (81-99); MONO# 1.12 X1000 (0.11-0.59); MONO% 10.7 % (1.7-9.3); NEUT% 73.1 % (42.2-75.2); PLT 243 X1000 (130-400)
[2016-09-29] MEDS ORDERED: MIRALAX PO SCH (09:00)
--- NOTE | 2016-09-29 10:44 | DISCHARGE SUMMARY ---
ADMISSION DATE: 09/24/2016 DISCHARGE DATE: 09/29/2016 CONSULTATIONS: 1. Elain Smith MD with Cardiology. 2. Akbar Shukla MD with Orthopedics. PERTINENT PROCEDURES: 1. Left bipolar hemiarthroplasty performed by Dr. Shukla. 2. Femur x-ray showed a femoral neck fracture. 3. Echocardiogram showed an EF of 65%. DISCHARGE DIAGNOSES: 1. Fall, status post left bipolar hemiarthroplasty for left displaced femoral neck fracture. The patient going to rehab at [facility]. 2. Urinary tract infection secondary to Pseudomonas. Continue with p.o. antibiotics. 3. Second degree AV block, type 1, asymptomatic. 4. Hypotension, resolved. HOSPITAL COURSE: Mr. Lakhani is an 81-year-old male with a history of BPH, who accidentally tripped and fell while walking at the [facility] from his assisted living. He was walking in the grassy area, when he had a trip and fall. There was no loss of consciousness. No preceding chest pain. He did not hit his head. He did immediately have left hip pain and came to the ED for evaluation. A left hip x-ray was consistent with a left femoral neck fracture. Orthopedics was consulted. He underwent a left hip bipolar hemiarthroplasty with Dr. Shukla once he had cardiac clearance for an abnormal EKG. He had a second-degree AV block, type 1 considering his baseline bradycardia from time to time. He did get clearance for his surgery. He was non symptomatic. The patient was able to work with physical therapy. He has been accepted to [facility]. VITAL SIGNS: At time of discharge, temperature is 97.7, heart rate 99, respirations 12, blood pressure is 116/48, O2 is 98% on room air. DISCHARGE DIET: Healthy heart. DISCHARGE MEDICATIONS: 1. Keflex 500 mg p.o. b.i.d. for 5 days. 2. Oxy IR 5 mg p.o. q.3 hours p.r.n. 3. MiraLAX 17 g p.o. daily. 4. Xarelto 10 mg p.o. daily for 21 days. FOLLOWUP: The patient is being discharged to [facility]. He will follow up with Dr. Shukla in 2 weeks, as well as his primary care physician, Dr. Poli Bragg, after rehab. The patient can return to the ED for any worsening of symptoms. DISCHARGE TIME: 30 minutes. Dictated by ADORE Bermudez for Ramsey Candelario MD cc: MD Poli Duong MD
[2016-09-29 12:55] VITALS: BP 121/51
== END 2016-09-29 13:19 ==
LOC: ED 11:55 → SUATTDRO 14:08 → 4N 14:08 → ICU 09-25 20:20 → 4N 09-26 14:24
PROVIDERS: ATTEND Emergency Medicine

== ENCOUNTER 2016-10-12 13:46 | Inpatient (IN) ==
[2016-10-12 14:49] LABS: MANUAL DIFF NEEDED? NO
[2016-10-12 15:00] LABS: BASO% 0.2 % (0.0-0.8); EOS# 0.03 X1000 (0.0-0.7); EOS% 0.2 % (0.0-10.0); HEMATOCRIT 32.2 % (42.0-52.0); HEMOGLOBIN 9.8 g/dL (14.0-18.0); LYMPH% 12.4 % (20.5-51.1); MCH 30.2 PG (27-31); MCHC 30.4 g/dL (33-37); MCV 99.4 FL (81-99); MONO# 1.54 X1000 (0.11-0.59); MONO% 8.7 % (1.7-9.3); MPV 10.8 FL (7.4-10.4); NEUT% 78.5 % (42.2-75.2); PLT 718 X1000 (130-400); RBC 3.24 XMIL (4.7-6.1)
[2016-10-12 15:12] LABS: CALCIUM 8.8 mg/dL (8.8-10.2); POTASSIUM 5.8 mmol/L (3.5-5.1); TOTAL BILIRUBIN 0.7 mg/dL (0.20-1.00); TOTAL PROTEIN 7.1 g/dL (6.3-8.3)
[2016-10-12] MEDS ORDERED: NS 1,000 ML IV ONE (16:12)
[2016-10-12] MEDS ORDERED: NS 1,000 ML IV SCH (17:00)
[2016-10-12] MEDS ORDERED: TYLENOL PO PRN (17:16)
[2016-10-12] MEDS ORDERED: ZOFRAN IV PRN (17:16)
[2016-10-12] MEDS ORDERED: HUMULIN R IV ONE (17:19)
[2016-10-12] MEDS ORDERED: D50W SYRINGE IV ONE (17:19)
[2016-10-12] MEDS ORDERED: ALBUTEROL 0.5% INH CONC FOR HYPERKALEMIA INH ONE (17:20)
--- NOTE | 2016-10-12 17:20 | PROVIDER DOCUMENTATION ---
This chart was entered by Jaz Duarte Scribe, acting as scribe for Akbar Lee MD. HPI-Abdominal Pain/GI Problem - General Chief Complaint: Chest Pain Stated Complaint: chest pain Time Seen by Provider: 10/12/16 14:15 Source: family Allergies/Adverse Reactions: Patient Allergies Allergy/AdvReac Type Severity Reaction Status Date / Time tamsulosin [From Flomax] Allergy Unknown Verified 10/12/16 14:08 Home Medications: Home Medication List Medication Instructions Recorded Confirmed Last Taken Type Oxycodone I.r. [Oxy Ir] 5 mg PO Q3H PRN PRN #0 capsule 09/28/16 10/12/16 17:00 Rx Polyethylene Glycol 3350 [Miralax] 17 gm PO DAILY powder, packet 09/28/1610/1210/12/16 08:00 Rx Rivaroxaban [Xarelto] 10 mg PO DAILY@0600 tablet 09/28/16 10/12/16 10/12/16 05: 00 Rx Acetaminophen 325 mg PO PRN PRN 10/12/16 10/12/16 10/12/16 01:50 History Multivitamin with Folic Acid 1 tab PO DAILY 10/12/16 10/12/16 10/12/16 08:00 History [Adult One Daily Gummies] - History of Present Illness-ABD Nature of Presenting Problems: 81 Y/O M presents to the ER by EMS with the complain of RLQ pain and bladder discomfort [employer]. pt family states that pt lives in the residential and had his bipolar biopsy on hip was done X2 weeks. pt family states that pt has Lane cathedra removed and is feeling discomfort in bladder. pt was sent by residential for abd pain. pt had O2 stat dropped in residential and they called the EMS. Abdominal Pain Onset Location: reports: RLQ Onset/Duration: reports: just prior to arrival Associated Symptoms: reports: other (RLQ pain and bladder discomfort) Review of Systems - Adult - REVIEW OF SYSTEMS - ADULT Constitutional: reports: no symptoms reported Eyes: reports: no symptoms reported Ears, Nose, Mouth & Throat: reports: no symptoms reported Cardiovascular: reports: no symptoms reported Respiratory: reports: no symptoms reported Gastrointestinal: reports: abdominal pain (RLQ). denies: nausea, vomiting Genitourinary: reports: other (bladder discomfort). denies: dysuria Musculoskeletal: reports: no symptoms reported Integumentary: reports: no symptoms reported Neurological: reports: no symptoms reported Psychiatric: reports: no symptoms reported Endocrine: reports: no symptoms reported Hematologic/Lymphatic: reports: no symptoms reported Allergic/Immunologic: reports: no symptoms reported All Other Systems: Reviewed and Negative Past History - Adult - PAST MEDICAL HISTORY-ADULT Review of Records: reports: Old Records Reviewed, Nursing Assessment Review Major Childhood Illnesses: reports: denies history Cardiovascular: reports: denies history Respiratory: reports: denies history Gastrointestinal: reports: denies history Obstetrical/Gynecological: reports: denies history Genitourinary: reports: denies history Musculoskeletal: reports: denies history Neurological: reports: denies history Psychiatric: reports: denies history Endocrine/Immune: reports: denies history Other Conditions: reports: denies history - PRIOR SURGERIES/PROCEDURES Surgical/Procedure History: reports: hernia repair - PRIOR HOSPITALIZATIONS Prior Hospitalizations: reports: none - IMMUNIZATION STATUS Childhood Immunizations: See Nurse Assessment Flu Vaccine: See Nurse Assessment - FAMILY HISTORY Family History: reviewed, not pertinent Physical Exam-General - PHYSICAL EXAM-ADULT Initial Vital Signs Reviewed: Yes - CONSTITUTIONAL General Appearance: lethargic, slow to respond - EYES Eyes: PERRL/EOMI, pink conjunctivae - HEAD, EARS, NOSE, MOUTH & THROAT HENMT: moist mucous membranes, normal ENT inspection - NECK Neck: non-tender, supple - RESPIRATORY Respiratory: lungs clear, normal breath sounds - CARDIOVASCULAR Cardiovascular: regular rate, rhythm, no edema - GASTROINTESTINAL (ABDOMEN) Abdominal Exam: non tender, soft, other (bladder palpative) - MUSCULOSKELETAL Back Exam: no CVA tenderness, no vertebral tenderness Extremity: no pedal edema, no calf tenderness - SKIN Integumentary: normal color, normal turgor, warm/dry Progress - PLAN OF CARE/RESULTS Progress/Plan/Lab Results: Vital Signs - 8 hr 10/12/16 14:00 Temperature 97.8 F Pulse Rate 62 Respiratory Rate 20 Blood Pressure 135/87 O2 Sat by Pulse Oximetry 93 L Result Diagrams: 10/12/16 13:50 10/12/16 13:50 - EKG 1 Time of EKG reading by physician:: 13:53 EKG Read and Signed by:: Akbar Lee EKG Interpretation (*Must complete 3 of following elements*): Abnormal Rate: 57 Rhythm: Sinus Tachycardia Comments: Abnormal ECG Departure - Departure Date of Disposition Decision: 10/12/16 Time of Disposition Decision: 17:18 DIAGNOSIS: Hypoxemia, UTI (urinary tract infection) due to urinary indwelling Lane catheter Renal failure Qualifiers: Renal failure chronicity: acute Disposition: ADMITTED INPATIENT 09 Certified Medical Emergency: Emergent Condition: Fair Referrals and Follow-Ups: None,PCP [Clinical Support] - - Critical Care Note This patient required my direct & personal management of CC.: Yes Total Time (mins): 30 Critical Care Statement: This patient required my direct personal management to treat or rule out processes, the absence of which, could potentiallly result in sudden, clinically significant life or limb threatening deterioration. This chart was documented by the indicated scribe, (Jaz Duarte Scribe) and accurately reflects the services I performed and decisions made by me, Akbar Lee MD, as attested by the provider's signature.
--- NOTE | 2016-10-12 17:30 | Diag Imaging Result Doc PS360 ---
EXAM: CHEST-PORTABLE HISTORY: dyspnea TECHNIQUE: AP portable chest upright at 1720 COMMENT: There is no evidence of acute cardiac or pulmonary disease. Compared to 09/24/2016 there is been no significant change in the appearance of the chest. IMPRESSION: Stable chest. Electronically signed by Junaid Miller 10/12/2016 5:27 PM
[2016-10-12 17:32] LABS: URINE SOURCE CATH
[2016-10-12 17:33] LABS: URINE MICRO REVIEW NEEDED? YES
[2016-10-12] MEDS ORDERED: ALBUTEROL 0.5% INH CONC FOR HYPERKALEMIA ONE (17:46)
[2016-10-12 17:56] LABS: BILIRUBIN URINE NEGATIVE (NEGATIVE); COLOR YELLOW; GLUCOSE URINE NEGATIVE (NEGATIVE); SP GRAVITY URINE 1.014; TURBIDITY URINE HAZY (CLEAR)
[2016-10-12 17:57] LABS: BLOOD URINE SMALL (NEGATIVE); LEUKOCYTES URINE LARGE (NEGATIVE); NITRITE URINE NEGATIVE (NEGATIVE); PROTEIN URINE 30 mg/dL (NEGATIVE); UROBILINOGEN URINE NORMAL (NORMAL)
[2016-10-12 17:58] LABS: UR AMPHETAMINES QUAL NONE DETECTED (NONE DETECT); UR BARBITUATES QUAL NONE DETECTED (NONE DETECT); UR BENZODIAZEPIN QUAL NONE DETECTED (NONE DETECT); UR CANNABINOIDS QUAL NONE DETECTED (NONE DETECT); UR COCAINE QUAL NONE DETECTED (NONE DETECT); UR METHADONE QUAL NONE DETECTED (NONE DETECT); UR OPIATES QUAL NONE DETECTED (NONE DETECT); UR OXYCODONE QUAL PRESUMPTIVE POSITIVE (NONE DETECT); UR PCP QUAL NONE DETECTED (NONE DETECT); URINE WBC 20-40 /HPF (<10)
[2016-10-12 17:59] LABS: UR EPITHELIAL CELLS <10 /HPF (<10); URINE BACTERIA 3+ /HPF; URINE CULTURE NEEDED? YES; URINE RBC <10 /HPF (<10)
[2016-10-12] MEDS: NS 1,000 ML IV SCH (18:59)
[2016-10-12 19:18] LABS: URINE CASTS GRANULAR PRESENT
[2016-10-12] MEDS: HYTRIN PO SCH (20:21)
[2016-10-12] MEDS: MERREM 500 MG in NS 50 ML IV SCH (20:22)
--- NOTE | 2016-10-12 21:52 | Diag Imaging Result Doc PS360 ---
EXAM: LUNG SCAN / VQ HISTORY: hypoxemia TECHNIQUE: Ventilation/perfusion lung scan: 31.7 mCi of technetium 99m DTPA aerosol for the ventilation study and 5.5 mCi of technetium 99m MAA intravenously for the perfusion portion. COMMENT: There is no evidence of ventilation/perfusion mismatch. There are no absolute perfusion defects. IMPRESSION: Normal study. Electronically signed by Junaid Miller 10/12/2016 9:50 PM
--- NOTE | 2016-10-12 22:36 | HISTORY AND PHYSICAL ---
PRIMARY CARE PHYSICIAN: Dr. Poli Bragg. HISTORY OF PRESENT ILLNESS: Mr. Lakhani is an 81-year-old male with a history of a recent left bipolar hemiarthroplasty performed on 09/25/2016, as well as a transurethral resection of bladder tumors and benign prostatic hyperplasia who was sent via EMS to the hospital after the patient was noted to be hypoxic at the longterm. According to the patient's daughter, the patient has been having issues with urinating for the last several weeks. The patient would complain of frequent urination and only urinate a very small amount. Over the last several days, the patient has been complaining of increasing lower abdominal pain. At the longterm, it was also reported that the patient was having fever and chills. Also the patient's appetite has been very poor essentially since his discharge from the hospital on September. At this time, the patient is resting comfortably. He does not have any pain at this time. Upon arrival to the emergency room, a Lane catheter was placed and the patient so far has put out 1.3 L of urine. The patient was also noted to have a urinary tract infection. The patient denies having any chest pain, headache, or dizziness. The patient has not complained of runny nose or cough. A chest x-ray was done in the emergency room that was unremarkable. According to the patient's daughter, the patient has not really been participating in rehabilitation, due to his generalized weakness and poor appetite. PAST MEDICAL HISTORY: 1. Transitional cell cancer of the bladder. 2. Benign prostatic hyperplasia. PAST SURGICAL HISTORY: 1. Right hip hemiarthroplasty. 2. Transurethral resection of a bladder tumor. 3. Right ureteral double-J stent. 4. Left bipolar hemiarthroplasty. FAMILY HISTORY: Noncontributory due to age. SOCIAL HISTORY: The patient is currently a resident at [facility]. The patient is . The patient denies any tobacco, alcohol, or illicit drug use. ALLERGIES: Flomax. HOME MEDICATIONS: 1. Oxycodone IR 5 mg p.o. every 3 hours p.r.n. for pain. 2. Multivitamin 1 tab oral daily. 3. Xarelto 10 mg p.o. daily. 4. MiraLAX 17 g p.o. daily. REVIEW OF SYSTEMS: A 12 point review of systems has been performed. Please refer to the history of present illness for pertinent positives and negatives. PHYSICAL EXAMINATION: VITAL SIGNS: Temperature 97.8 degrees, blood pressure 135/87, heart rate 62, respirations 20, O2 saturations 93% on room air. GENERAL: This is an elderly male, lying comfortably on the stretcher, in no acute distress. SKIN: No rashes, no lesions, and normal capillary refill. HEAD: Normocephalic, atraumatic. HEART: S1, S2. Normal. Bradycardic. LUNGS: Clear to auscultation bilaterally. No crackles. No rales. ABDOMEN: Positive bowel sounds. Soft, nontender, nondistended. EXTREMITIES: No edema. No cyanosis. No calf tenderness. NEUROLOGIC: The patient is very hard of hearing, but he is alert and oriented x3. No focal neurologic deficits noted. LABS: CBC: White blood cell count 17, hemoglobin 9.8, hematocrit 32, platelets 718,000. D- dimer: 3.0. Chem: Sodium 139, potassium 5.8, chloride 98, CO2 18, BUN 25, creatinine 1.5, glucose 173. AST 43, ALT 17, alkaline phosphatase 107, albumin 3. Urinalysis : Shows large leukocyte esterase, 3+ bacteria. IMAGING DIAGNOSTICS: Chest x-ray: Shows no acute pulmonary disease. ASSESSMENT AND PLAN: 1. Hypoxia. The patient's O2 sats have improved on 2 L nasal cannula. The patient's D-dimer was elevated. However, the patient recently had surgery. We will go ahead and order a V/Q scan. We will also order bronchodilator therapy. 2. Severe urinary retention. After the Lane catheter was placed, the patient put out over a liter of urine. We will consult Urology for further recommendations. 3. Urinary tract infection. A urine culture has been obtained. We will start the patient on IV antibiotic therapy. 4. Acute kidney injury. This is most likely secondary to urinary retention. The patient has been started on IV fluid hydration. We will monitor the patient's renal function closely as well as his urine output. 5. Hyperkalemia. We will treat the patient with the hyperkalemia protocol. We will repeat the potassium level in the morning. 6. Leukocytosis. This is most likely secondary to the patient's underlying urinary tract infection. IV antibiotics have been started. 7. Recent left bipolar hemiarthroplasty. The patient has had surgery on 2016. We will continue on deep vein thrombosis prophylaxis and rehabilitation. 8. 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 Aware. Monitor on telemetry 9. Deep vein thrombosis prophylaxis. We will continue on Xarelto. The plan of care was discussed with the patient and his daughter at the bedside. cc: Radha Quinteros MD MTDD
[2016-10-12 23:25] LABS: POTASSIUM 4.8 mmol/L (3.5-5.1)
[2016-10-13] MEDS: NS 1,000 ML IV SCH (03:19)
[2016-10-13] MEDS: MERREM 500 MG in NS 50 ML IV SCH ×3 (03:19→22:43)
--- NOTE | 2016-10-13 05:36 | EKG Report ---
Test Performed on : 10/12/2016 1:53:49 PM Test Reason : bradycardia Blood Pressure : / mmHG Vent. Rate : 057 BPM Atrial Rate : 057 BPM P-R Int : 182 ms QRS Dur : 110 ms QT Int : 472 ms P-R-T Axes : 023 -72 082 degrees QTc Int : 459 ms Sinus bradycardia. Left axis deviation Right bundle branch block Anterior infarct (cited on or before 12-OCT-2016) Abnormal ECG When compared with ECG of 12-OCT-2016 13:51, (Unconfirmed) No significant change was found Unconfirmed Result
[2016-10-13 06:37] LABS: MANUAL DIFF NEEDED? NO
[2016-10-13] MEDS: XARELTO PO SCH (07:00)
[2016-10-13] MEDS: PRILOSEC PO SCH (07:00)
[2016-10-13 07:04] LABS: RETIC% 1.1 % (0.8-2.1); RETIC-HE 23.2 PG (28.2-36.6)
[2016-10-13 07:06] LABS: HEMOGLOBIN A1C 5.3 % (4.8-6.0); IRON SATURATION 8 %; TIBC 120 ug/dL; TOTAL IRON 10 ug/dL (53-167); UNBOUND IRON 110 ug/dL (112-346)
[2016-10-13 07:15] LABS: CALCIUM 7.9 mg/dL (8.8-10.2); MAGNESIUM 2.3 mg/dL (1.5-2.7); POTASSIUM 4.5 mmol/L (3.5-5.1)
[2016-10-13 07:26] LABS: BASO% 0.2 % (0.0-0.8); HEMATOCRIT 24.5 % (42.0-52.0); HEMOGLOBIN 7.6 g/dL (14.0-18.0); IMM GRAN# 0.03 X1000 (0.0-0.04); IMM GRAN% 0.3 % (0.0-0.5); LYMPH# 1.21 X1000 (1.2-3.4); LYMPH% 10.6 % (20.5-51.1); MCH 29.3 PG (27-31); MCV 94.6 FL (81-99); MONO# 1.46 X1000 (0.11-0.59); MONO% 12.8 % (1.7-9.3); MPV 10.4 FL (7.4-10.4); NEUT% 76.1 % (42.2-75.2); PLT 416 X1000 (130-400); RBC 2.59 XMIL (4.7-6.1)
[2016-10-13 07:29] LABS: FERRITIN 668 ng/mL (30-400)
[2016-10-13] MEDS: DUONEB (A & A) INH PRN ×2 (08:16→15:54)
[2016-10-13] MEDS: MIRALAX PO SCH (08:51)
[2016-10-13] MEDS: ICAR-C PO SCH (08:51)
[2016-10-13] MEDS: MEGACE LIQUID PO SCH (08:51)
[2016-10-13] MEDS: THERA M PLUS PO SCH (08:52)
[2016-10-13] MEDS ORDERED: VITAMIN D PO SCH (09:00)
[2016-10-13] MEDS ORDERED: HYTRIN PO SCH (09:00)
--- NOTE | 2016-10-13 15:38 | PROGRESS NOTE ---
DATE: 10/13/2016 SUBJECTIVE: The patient is resting comfortably in bed. No acute events noted overnight. He appears more awake and alert today. OBJECTIVE: Vital Signs: Temperature 97.8 degrees, blood pressure 124/61, heart rate 89, respirations 18, O2 saturations 98% on 1 L nasal cannula. General: This is an elderly male who is hard of hearing, lying in bed, in no acute distress. Head: Normocephalic, atraumatic. Heart: S1, S2 normal. Regular rate and rhythm. Lungs: Clear to auscultation bilaterally. No wheezes, no rales, no rhonchi. Abdomen: Positive bowel sounds. Soft, nontender, nondistended. Extremities: No edema. No cyanosis. No calf tenderness. Neurologic: The patient is alert and oriented x3. LABS: White blood cell count 11, hemoglobin 7.6, hematocrit 24, platelets 416, 000. Sodium 142, potassium 4.5, chloride 108, CO2 23, BUN 23, creatinine 1.2, glucose 124. ASSESSMENT AND PLAN: 1. Urinary tract infection. The urine culture is growing gram-negative rods. Continue on IV antibiotic therapy. 2. Urinary retention. Continue with Lane catheter. Urology has been consulted. 3. Leukocytosis, improved. Continue on IV antibiotic therapy. 4. Acute kidney injury. Improving. 5. Status post recent left bipolar hemiarthroplasty. Continue with rehabilitation. 6. 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 Aware. 7. Vitamin D deficiency. Start vitamin d replacement. 8. Deep vein thrombosis prophylaxis. The patient is currently on Xarelto. cc: Radha Quinteros MD [facility]
--- NOTE | 2016-10-13 16:44 | CONSULTATION ---
DATE OF CONSULTATION: 10/13/2016 ATTENDING AND REFERRING PHYSICIAN: Hospitalist. HISTORY OF PRESENT ILLNESS: This 81-year-old male is about 2 weeks status post left hip replacement. He states he has been having problems voiding since then. He is followed in the Urology [facility] for transitional cell cancer. His last cancer resection was 17 years ago in the year 1999. The patient was last seen in the Urology Clinic in July 2016. His cystoscopic exam at that time had no evidence of disease. A large prostate was noted. His PSA was 2.42. He is using nutritional supplements to try to help with his obstructive voiding. He tried Flomax 1 time and states it made him dizzy. The patient's prostate length is about 5 cm. He is certainly a candidate for transurethral resection of the prostate. He states that before his hip surgery he was voiding without difficulty. He has no problems with urinary tract infections or stones. PAST MEDICAL HISTORY: As noted in the HPI. CURRENT MEDICATIONS: Are documented on the chart. SOCIAL HISTORY: He lives in a longterm. No tobacco or alcohol use. REVIEW OF SYSTEMS: He has dizziness when he takes Flomax. Otherwise in no problems with diabetes, strokes, seizures, recent pulmonary or bowel problems. PHYSICAL EXAMINATION: General: A thin, age apparent, normally developed white male, oriented in all ways and cooperative. HEENT: Normal for age. Lungs: Clear. Cardiovascular: Regular rate and rhythm. Abdomen: Protuberant, soft, nontender. No hepatosplenomegaly or masses. Normal bowel sounds. : Uncircumcised male with Lane catheter in place draining clear urine. Rectal: Normal sphincter tone. Prostate about 70-80 g, smooth and symmetric. Extremities: No clubbing, cyanosis, or edema. Neurologic: No focal deficits. LABORATORY EVALUATION: He has a white count 11.4, hemoglobin 7.6, hematocrit 24.5, platelets are 416,000. His serum electrolytes are essentially normal. BUN 23, creatinine 1.2. Catheterized urine has large leukocytes, 20-40 white cells, 3+ bacteria. Urine culture is pending. The preliminary is growing gram-negative rods. IMPRESSION: Postoperative urinary retention with urinary tract infection. PLAN: Keep Lane catheter for at least 1 week. Start Uroxatral 10 mg at bedtime, continue antibiotics and then culture specific antibiotics when sensitivities are available. Thank you for this consultation. cc: Vick Salmeron MD
[2016-10-13] MEDS: UROXATRAL PO SCH (22:43)
[2016-10-13] MEDS: HYTRIN PO SCH (22:43)
[2016-10-13] MEDS ORDERED: CHLORASEPTIC SPRAY PRN (23:15)
[2016-10-13] MEDS ORDERED: CHLORASEPTIC SPRAY MT PRN (23:22)
[2016-10-14] MEDS: XARELTO PO SCH (06:29)
[2016-10-14] MEDS: MERREM 500 MG in NS 50 ML IV SCH ×4 (06:30→23:00)
[2016-10-14] MEDS: PRILOSEC PO SCH (06:30)
[2016-10-14 06:43] LABS: MANUAL DIFF NEEDED? NO
[2016-10-14 06:58] LABS: BASO% 0.3 % (0.0-0.8); EOS# 0.28 X1000 (0.0-0.7); EOS% 3.7 % (0.0-10.0); HEMATOCRIT 24.8 % (42.0-52.0); HEMOGLOBIN 7.8 g/dL (14.0-18.0); LYMPH# 1.45 X1000 (1.2-3.4); LYMPH% 19.2 % (20.5-51.1); MCH 29.5 PG (27-31); MCHC 31.5 g/dL (33-37); MCV 93.9 FL (81-99); MONO# 0.69 X1000 (0.11-0.59); MONO% 9.1 % (1.7-9.3); MPV 10.4 FL (7.4-10.4); NEUT% 67.7 % (42.2-75.2); PLT 427 X1000 (130-400); RBC 2.64 XMIL (4.7-6.1)
[2016-10-14 07:13] LABS: AGAP 8; BUN 16 mg/dL (8-22); CALCIUM 8.1 mg/dL (8.8-10.2); CHLORIDE 108 mmol/L (98-107); COSMO 278; POTASSIUM 4.5 mmol/L (3.5-5.1); SODIUM 139 mmol/L (136-145); TCO2 23 mmol/L (25-35)
[2016-10-14] MEDS: MIRALAX PO SCH (09:24)
[2016-10-14] MEDS: THERA M PLUS PO SCH (09:24)
[2016-10-14] MEDS: MEGACE LIQUID PO SCH (09:24)
[2016-10-14] MEDS: ICAR-C PO SCH (09:24)
--- NOTE | 2016-10-14 12:10 | PROGRESS NOTE ---
DATE: 10/14/2016 SUBJECTIVE: The patient states that he does not really have an appetite and does not feel great today. OBJECTIVE: Vital Signs: Temperature 98 degrees, blood pressure 136/62, heart rate 85, respirations 16, O2 saturations 96% on 2 L nasal cannula. General: This is an elderly male, lying in bed, in no acute distress. Head: Normocephalic, atraumatic. Heart: S1, S2. Normal. Regular rate and rhythm. Lungs: Clear to auscultation bilaterally. No wheezes, no rales. No rhonchi. Abdomen: Positive bowel sounds. Soft, nontender, nondistended. Extremities: No edema. No cyanosis. Neurologic: The patient is very hard of hearing, but alert and oriented x3. LABORATORY DATA: White blood cell count 7.5, hemoglobin 7.8, hematocrit 25, platelets 427,000. Sodium 139, potassium 4.5, chloride 108, CO2 23, BUN 16, creatinine 0.9. ASSESSMENT AND PLAN: 1. Urinary tract infection. The urine culture is growing gram-negative rods. We will continue on the current IV antibiotic regimen. We will address the antibiotics accordingly. 2. Urinary retention. Continue with the Lane catheter as ordered by the urologist. The patient was also on Uroxatral. 3. Vitamin D deficiency. Continue on vitamin D replacement. 4. Anemia. We will monitor the patient's hemoglobin and hematocrit closely. 5. Status post recent left bipolar hemiarthroplasty. Continue with rehab. 6. Asymptomatic bradycardia secondary to atrioventricular block. Aware. 7. Deep vein thrombosis prophylaxis. Continue on Xarelto. cc: Radha Quinteros MD
[2016-10-14] MEDS: HYTRIN PO SCH (21:22)
[2016-10-14] MEDS: NORCO-5 PO PRN (21:22)
[2016-10-14] MEDS: UROXATRAL PO SCH (21:22)
[2016-10-15 06:40] LABS: HEMATOCRIT 27.8 % (42.0-52.0); HEMOGLOBIN 8.8 g/dL (14.0-18.0); MCH 29.4 PG (27-31); MCHC 31.7 g/dL (33-37); MPV 10.3 FL (7.4-10.4); RBC 2.99 XMIL (4.7-6.1)
[2016-10-15] MEDS: XARELTO PO SCH (06:56)
[2016-10-15] MEDS: MERREM 500 MG in NS 50 ML IV SCH ×2 (06:56→14:38)
[2016-10-15] MEDS: PRILOSEC PO SCH (06:56)
[2016-10-15 07:07] LABS: AGAP 10; BUN 17 mg/dL (8-22); CALCIUM 8.6 mg/dL (8.8-10.2); CHLORIDE 108 mmol/L (98-107); COSMO 289; POTASSIUM 4.4 mmol/L (3.5-5.1); SODIUM 143 mmol/L (136-145); TCO2 25 mmol/L (25-35)
[2016-10-15] MEDS: THERA M PLUS PO SCH (08:11)
[2016-10-15] MEDS: ICAR-C PO SCH (08:11)
[2016-10-15] MEDS: MEGACE LIQUID PO SCH (08:11)
[2016-10-15] MEDS: MIRALAX PO SCH (08:11)
--- NOTE | 2016-10-15 14:35 | PROGRESS NOTE ---
DATE: 10/15/2016 SUBJECTIVE: The patient is resting comfortably in bed. He has no complaints at this time. OBJECTIVE: Vital Signs: Temperature 97.9 degrees, blood pressure 128/58, heart rate 86, respirations 17. O2 sats 100% on 2 L nasal cannula. General: This is an elderly male, lying comfortably in bed, in no acute distress. Head: Normocephalic, atraumatic. Heart: S1, S2 normal. Regular rate and rhythm. Lungs: Clear to auscultation bilaterally. Abdomen: Positive bowel sounds. Soft, nontender, nondistended. Extremities: No edema. No cyanosis. LABORATORY DATA: Reviewed. ASSESSMENT AND PLAN: 1. Urinary tract infection secondary to extended spectrum beta-lactamase Escherichia coli. The patient is currently on meropenem. Will consult Dr. Muhammad for further IV antibiotic recommendations. 2. Urinary retention. Continue with the Lane catheter plus Uroxatral. 3. Vitamin D deficiency. Continue on vitamin D replacement. 4. Status post recent left bipolar hemiarthroplasty. Continue with rehab. 5. 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 Stable. 6. Deep vein thrombosis prophylaxis. Continue on Xarelto. DISPOSITION: The patient will likely require inpatient rehab. We will await the assessment from the physical therapist. cc: Radha Quinteros MD MTDD
--- NOTE | 2016-10-15 17:00 | CONSULTATION ---
DATE OF CONSULTATION: 10/15/2016 CONCLUSION: This elderly gentleman has a symptomatic extended spectrum beta lactamase producing Escherichia coli urinary tract infection. RECOMMENDATIONS: I have switched the patient from meropenem to ertapenem at a dose of 1 g IV daily for a total of 14 days. Also, I am going to order a renal ultrasound on the patient. DISCUSSION: The patient was extremely hard of hearing. I was unable to obtain a history from him. A history was taken from a review of the patient's chart in the computer. The patient was living in [facility]. He had had difficulty passing his urine, and also he was having dysuria and suprapubic pain. He also was having fever and chills. He has been admitted to the hospital. Here, he was found to have an extended spectrum beta lactamase producing Escherichia coli urinary tract infection. Also, a Lane catheter was inserted in the patient. His laboratory studies show a CBC with a white count of 8110, hemoglobin 8.8, and platelet count 507,000. Creatinine is 0.9. REVIEW OF SYSTEMS: The only definite thing I can say is that the patient is extremely hard of hearing and, because of that, I was unable to obtain a history from him. PAST MEDICAL HISTORY: Positive for transitional cell cancer of the bladder, benign prostatic hypertrophy, and bilateral hip fractures at different times secondary to falling. PAST SURGICAL HISTORY: Positive for bilateral hip replacements, transurethral resection of bladder tumor and placement of a ureteral double-J stent. FAMILY HISTORY: Said to be noncontributory. SOCIAL HISTORY: The patient currently is a resident at [facility]. He is . He does not smoke cigarettes, drink alcoholic beverages, or abuse drugs. ALLERGIES: His chart lists an allergy to Flomax. MEDICATIONS TAKEN AT THE [facility]: Oxycodone, multivitamins, Xarelto, and MiraLAX. PHYSICAL EXAMINATION: Vital Signs: Temperature is 97.9 degrees, pulse 86, respirations 17, blood pressure 128/58. The patient weighs 168 pounds. General: This is a chronically ill-appearing, elderly male. He is in no acute distress. Head, eyes, ears, nose, and throat: Patient is extremely hard of hearing. He can see near objects. He has carious teeth. Neck: No meningismus. Thorax: No increased AP diameter. Lungs: Clear to auscultation. Cardiovascular: Heart rate was regular. There were diminished peripheral pulses. Abdomen: Soft and nontender. Extremities: The patient has an incision in his left hip where he recently had surgery. The incision is intact. It is not red or draining. The metal clips are still in place. The patient has a healed right hip incision. It is not erythematous and it is not swollen or draining. Neurologic: The patient is extremely hard of hearing. He did move his extremities. There was no tremor. I was unable to obtain any history from him due to his difficulty hearing. Integument: No rash noted. Thank you for the consult. cc: Corona Muhammad MD
[2016-10-15] MEDS: HYTRIN PO SCH (21:47)
[2016-10-15] MEDS: INVANZ 1 GM/NS 1 GM/50 ML IVPB IV SCH (21:47)
[2016-10-15] MEDS: NORCO-5 PO PRN (21:47)
[2016-10-15] MEDS: UROXATRAL PO SCH (21:47)
[2016-10-15] MEDS ORDERED: MELATONIN PO ONE (23:18)
[2016-10-16] MEDS: NORCO-5 PO PRN ×3 (03:11→20:28)
[2016-10-16] MEDS: XARELTO PO SCH (06:43)
[2016-10-16] MEDS: PRILOSEC PO SCH (06:43)
[2016-10-16 06:57] LABS: HEMATOCRIT 28.9 % (42.0-52.0); HEMOGLOBIN 9.1 g/dL (14.0-18.0); MCHC 31.5 g/dL (33-37); MCV 95.4 FL (81-99); MPV 10.3 FL (7.4-10.4); RBC 3.03 XMIL (4.7-6.1)
[2016-10-16 07:33] LABS: AGAP 7; BUN 13 mg/dL (8-22); CHLORIDE 108 mmol/L (98-107); COSMO 281; POTASSIUM 4.4 mmol/L (3.5-5.1); SODIUM 141 mmol/L (136-145); TCO2 26 mmol/L (25-35)
[2016-10-16] MEDS: THERA M PLUS PO SCH (08:27)
[2016-10-16] MEDS: MIRALAX PO SCH (08:27)
[2016-10-16] MEDS: MEGACE LIQUID PO SCH (08:27)
[2016-10-16] MEDS: ICAR-C PO SCH (08:27)
--- NOTE | 2016-10-16 14:47 | PROGRESS NOTE ---
DATE: 10/16/2016 PRESENT ILLNESS: The patient has a symptomatic extended spectrum beta lactamase producing Escherichia coli urinary tract infection. MEDICATIONS: The patient is receiving ertapenem, which started yesterday. Prior to that, the patient was on meropenem. Overall, he has had 3 days of antibiotic treatment of his urinary tract infection. PHYSICAL EXAMINATION: Vital Signs: Temperature is 97.8 degrees, pulse 67, respirations 18, blood pressure 133/41. General: This is a somewhat ill-appearing, elderly male. He is in no acute distress. Lungs: Clear to auscultation. Cardiovascular: Regular heart rate. Abdomen and Flanks: Soft, with no tenderness. Neurologic: Patient is awake. He can move his extremities. LABORATORY AND X-RAY: The CBC for today shows a white count of 7580, hemoglobin 9.1, platelet count 474,000. Creatinine 0.8. GFR is greater than 60.. ASSESSMENT AND PLAN: Patient has an Escherichia coli urinary tract infection. The plan is to continue with ertapenem. I have ordered a renal ultrasound just to make sure there is no blockage or abscess involving the kidney. COMORBIDITIES: He has cancer of the bladder and he has benign prostatic hypertrophy. cc: Corona Muhammad MD
[2016-10-16] MEDS ORDERED: NS 250 ML ONE (15:13)
--- NOTE | 2016-10-16 15:23 | PROGRESS NOTE ---
DATE: 10/16/2016 SUBJECTIVE: The patient has no complaints. He wants to get out of here. OBJECTIVE: Vital signs: Blood pressure 101/46, heart rate 68, respiratory rate 18, temperature 97.8 degrees, 98% on room air. Cardiovascular: Regular rate and rhythm. Pulmonary: Bilateral breath sounds. Clear to auscultation. GI: Soft, nontender, nondistended. Bowel sounds are positive. LABORATORY DATA: White count is normal. Hemoglobin and hematocrit 9 and 28, platelets 474,000. Basic was negative. His urine cultures from the 2nd showed ESBL E. coli sensitive to amikacin, imipenem and Bactrim. PROBLEM LIST: 1. Escherichia coli urinary tract infection. Extended-spectrum beta-lactamase. Plan for home IV therapy, another 10 days of IV antibiotics with Invanz. 2. Urinary retention. He has a Lane in place with Uroxatral. 3. Vitamin D deficiency. He is on vitamin D replacement. 4. Bradycardia appears to be stable. DISPOSITION: He will plan to go to [facility] hopefully tomorrow if everything has stabilized. cc: Gilberto Conley MD
--- NOTE | 2016-10-16 15:39 | Diag Imaging Result Doc PS360 ---
EXAM: US RENAL 2 (RETROPER) COMPLETE INDICATION: UTI TECHNIQUE: COMPARISON: None. FINDINGS: There are prominent simple appearing renal cortical cysts bilaterally. The largest cyst on the left is at the lower pole and measures up to 9.3 cm in the greatest dimension. A solitary cyst on the right is at the lower pole as well and measures up to 5.4 cm in the greatest dimension. No solid renal masses or hydronephrosis is appreciated. The right kidney measures 11.5 cm and the left kidney measures 10.7 cm in the greatest longitudinal axes. The right renal cortex measures up to 1.1 cm and the left renal cortex measures up to 1.2 cm in thickness. There is a Lane catheter in the urinary bladder and the bladder is nondistended. IMPRESSION: Bilateral large simple renal cysts as described. Essentially unremarkable, otherwise. Electronically signed by Hunter Albright 10/16/2016 3:37 PM
[2016-10-16 16:02] LABS: INR 1.11; PROTIME 11.7 Seconds (9.2-11.7)
[2016-10-16] MEDS: HYTRIN PO SCH (20:30)
[2016-10-16] MEDS: UROXATRAL PO SCH (20:30)
[2016-10-16] MEDS: INVANZ 1 GM/NS 1 GM/50 ML IVPB IV SCH (20:30)
[2016-10-17] MEDS: PRILOSEC PO SCH (06:00)
[2016-10-17] MEDS: XARELTO PO SCH (06:00)
[2016-10-17 09:17] VITALS: BP 121/68
[2016-10-17] MEDS: MIRALAX PO SCH (09:48)
[2016-10-17] MEDS: THERA M PLUS PO SCH (09:48)
[2016-10-17] MEDS: ICAR-C PO SCH (09:48)
[2016-10-17] MEDS: MEGACE LIQUID PO SCH (09:48)
--- NOTE | 2016-10-17 11:45 | DISCHARGE SUMMARY ---
ADMISSION DATE: 10/12/2016 DISCHARGE DATE: 10/17/2016 CONSULTATIONS: 1. Vick Salmeron MD with Urology. 2. Corona Muhammad MD with Infectious Disease. PERTINENT PROCEDURES: 1. V/Q scan normal. 2. Renal ultrasound showed bilateral large simple renal cysts, essentially unremarkable. DISCHARGE DIAGNOSES: 1. Escherichia coli urinary tract infection, extended-spectrum beta-lactamase. Plan is for another 10 days of IV antibiotics with Invanz. 2. Urinary retention. The patient has a Lane in place which will be discontinued on 10/20/[address] Salmeron. 3. Continue with Uroxatral and Hytrin. 4. Vitamin D deficiency. Continue supplementation. 5. Bradycardia that has been stable throughout admission. 6. Hypoxia, resolved. 7. Acute kidney injury, improved. 8. Hypokalemia, resolved. 9. Recent left bipolar hemiarthroplasty. Patient going back to [facility]. HOSPITAL COURSE: Mr. Lakhani is an 81-year-old male who has a history of left bipolar hemiarthroplasty performed on 09/25/2016 as well as transurethral resection of bladder tumors and BPH who was sent by EMS to the hospital after the patient was noted to be hypoxic at the correction. According to the daughter, he had been having issues urinating for several weeks. He was complaining of frequent urination and only urinated a very small amount. Over the last several days prior to his admission, he had been complaining of increasing lower abdominal pain. [facility] reported fever and chills. Patient's appetite has also been essentially very poor since his discharge on 09/29/2016. Lane catheter was placed in the ED. They initially got out 1.3 L of urine. He was also noted to have a UTI. He was started on supplemental O2. He underwent a V/Q scan that was negative. Initiated bronchodilator therapy. Urology was consulted for his urinary retention. They recommended to leave the Lane in for 7 days and continue on Uroxatral. He was found to have Escherichia coli ESBL urinary tract infection. Dr. Corona Muhammad was consulted. The patient had recently been on meropenem. He has been switched to IV Invanz which he will need for 10 days. The patient does have a PICC line. He underwent a renal ultrasound to rule out any blockage or abscess. It did show bilateral large simple renal cysts but essentially it was unremarkable. He is appropriate for discharge back to [facility] today. VITAL SIGNS: Temperature is 98 degrees, heart rate 92, respirations 18, blood pressure is 121/68, O2 is 97% on room air. DISCHARGE DIET: Regular with Ensure with each meal. DISCHARGE MEDICATIONS: 1. Tylenol 325 mg p.o. p.r.n. 2. Uroxatral 10 mg p.o. at bedtime. 3. Vitamin D 50,000 units p.o. 7 days. 4. Icar C 1 p.o. daily. 5. Megace liquid 400 mg p.o. daily. 6. MVI 200 mcg 1 tab p.o. daily. 7. Oxy IR 5 mg p.o. q.3 h. p.r.n. 8. MiraLAX 17 g p.o. daily. 9. Xarelto 10 mg p.o. daily. This is for a duration of 21 days back on 2016. As a note on the Xarelto, the patient will have 1 more dose of Xarelto and that will be discontinued. 10. Hytrin 2 mg p.o. at bedtime. DISCHARGE INSTRUCTIONS: 1. Patient is being discharged back to [facility] where he will complete his 10 day course of IV antibiotics with Invanz. 2. Patient will need 1 more dose of Xarelto after his bipolar hemiarthroplasty he laughs Lane discontinue on 10/20/2016. 3. Follow up with Dr. Salmeron as well as Dr. Corona Muhammad. 4. The patient can return to the ED for any worsening symptoms. TIME SPENT: Discharge time 30 minutes. Dictated by ADORE Bermudez for Gilberto Conley MD cc: MD Poli Edge MD pt examined, [facility]
--- NOTE | 2016-10-17 12:53 | PROGRESS NOTE ---
DATE: 10/17/2016 PRESENT ILLNESS: The patient has a symptomatic extended spectrum beta lactamase producing Escherichia coli urinary tract infection. MEDICATIONS: The patient is on ertapenem. He is on day 4. I plan to treat for a total of 2 weeks. PHYSICAL EXAMINATION: Vital Signs: Temperature is 98 degrees, pulse 92, respirations 18, blood pressure 121/68. Generally, this is a chronically ill-appearing, elderly male. He is in no acute distress. Lungs: Clear to auscultation. Cardiovascular: Regular heart rate. Abdomen and flank soft and nontender. Neurologic: Patient is awake. He has marked decrease in his hearing. LABORATORY DATA AND X-RAY: CBC for today showed a white count of 7580, hemoglobin 9.1, and platelet count 474,000. Creatinine is 0.8. GFR is greater than 60. The patient's renal ultrasound showed the patient had bilateral renal cysts but , otherwise, no abnormalities. ASSESSMENT AND PLAN: Patient has Escherichia coli urinary tract infection. I am going to treat him with ertapenem to complete a 14-day treatment course. The patient's comorbidities include cancer of the bladder and benign prostatic hypertrophy. ADDENDUM: Patient is discharged from hospital to skilled nursing today. cc: Corona Muhammad MD MTDD
== END 2016-10-17 15:40 ==
LOC: ED 13:46 → SUATTDRO 18:22 → 3N 18:22
PROVIDERS: ATTEND Internal Medicine

== ENCOUNTER 2016-11-22 15:19 | Inpatient (IN) ==
[2016-11-22 15:54] LABS: MANUAL DIFF NEEDED? NO
[2016-11-22 16:03] LABS: BASO% 0.1 % (0.0-0.8); HEMATOCRIT 35.8 % (42.0-52.0); HEMOGLOBIN 11.4 g/dL (14.0-18.0); IMM GRAN# 0.04 X1000 (0.0-0.04); IMM GRAN% 0.2 % (0.0-0.5); LYMPH# 1.37 X1000 (1.2-3.4); LYMPH% 6.9 % (20.5-51.1); MCH 27.9 PG (27-31); MCHC 31.8 g/dL (33-37); MCV 87.7 FL (81-99); MONO% 8.6 % (1.7-9.3); MPV 9.9 FL (7.4-10.4); NEUT% 84.2 % (42.2-75.2); PLT 539 X1000 (130-400); RBC 4.08 XMIL (4.7-6.1)
[2016-11-22 16:31] LABS: URINE SOURCE CATH
[2016-11-22 16:42] LABS: BILIRUBIN URINE NEGATIVE (NEGATIVE); BLOOD URINE SMALL (NEGATIVE); COLOR YELLOW; GLUCOSE URINE NEGATIVE (NEGATIVE); LEUKOCYTES URINE LARGE (NEGATIVE); NITRITE URINE POSITIVE (NEGATIVE); PROTEIN URINE 100 mg/dL (NEGATIVE); SP GRAVITY URINE 1.027; TURBIDITY URINE HAZY (CLEAR); UROBILINOGEN URINE NORMAL (NORMAL)
[2016-11-22 16:44] LABS: UR EPITHELIAL CELLS <10 /HPF (<10); URINE BACTERIA 4+ /HPF; URINE CULTURE NEEDED? YES; URINE MICRO REVIEW NEEDED? YES; URINE RBC 20-40 /HPF (<10); URINE WBC TNTC /HPF (<10)
[2016-11-22 16:49] LABS: URINE CASTS GRANULAR PRESENT; URINE CRYSTALS CA OXALATE PRESENT
[2016-11-22 16:57] LABS: AGAP 13; ALBUMIN 3.4 g/dL (3.5-5.0); ALKALINE PHOSPHATASE 98 U/L (32-122); AMYLASE 17 U/L (20-200); BUN 30 mg/dL (8-22); CALCIUM 8.9 mg/dL (8.8-10.2); CHLORIDE 107 mmol/L (98-107); COSMO 290; GOT 16 U/L (10-34); GPT 19 U/L (10-44); LIPASE 11 U/L (13-60); POTASSIUM 4.2 mmol/L (3.5-5.1); SODIUM 141 mmol/L (136-145); TCO2 21 mmol/L (25-35); TOTAL BILIRUBIN 0.29 mg/dL (0.20-1.00); TOTAL PROTEIN 6.2 g/dL (6.3-8.3)
[2016-11-22] MEDS ORDERED: ROCEPHIN 1 GM/NS 1 GM/50 ML IVPB IV ONE (17:10)
--- NOTE | 2016-11-22 17:40 | Diag Imaging Result Doc PS360 ---
EXAM: CT ABD/PELVIS W/ IV CONT ONLY HISTORY: sent for eval poss obstruction TECHNIQUE: CT of the abdomen and pelvis with intravenous contrast with reduced radiation dose (clarity.) COMMENT: There is bibasal or atelectasis versus pneumonia. Some of the opacity may be due to mild pulmonary edema. There are no gallstones. There is considerable patient motion. No apparent renal stones are present. There is no evidence of abdominal aortic aneurysm. The mesenteric arteries are patent. There is a large left renal cyst measuring in excess of 9.7 cm. There is a cyst in the lower pole of the right kidney measuring excess of 6 cm. The pancreas is somewhat atrophic in appearance. The spleen and adrenal glands are not enlarged. There are no abnormal fluid collections. The appendix is not enlarged. There is a fairly large amount of gas and fluid in the cecum and ascending colon. Fluid is seen elsewhere in the colon. There is diverticulosis in the descending colon. The small bowel is not distended. Pelvis: Some detail is obscured by beam hardening artifact arising from the patient's bilateral hip prostheses. There is a Lane catheter in the bladder. There is a fairly large amount of stool in the rectum. There is some mucosal thickening. There is no evidence of free fluid adenopathy or masses. There are Tarlov cysts in the sacrum. There are degenerative facet and disc changes in the lumbar spine. IMPRESSION: Constipation. Diverticulosis coli. Possibility of stercoral colitis particularly in the rectum cannot be excluded. Bibasal or atelectasis with pneumonia versus pulmonary edema. Electronically signed by Junaid Miller 11/22/2016 5:37 PM
[2016-11-22] MEDS ORDERED: FLAGYL 500 MG/NS 500 MG/100 ML IVPB IV ONE (17:42)
[2016-11-22] MEDS ORDERED: LEVAQUIN 750 MG/D5W 750 MG/150 ML IVPB IV ONE (17:42)
--- NOTE | 2016-11-22 17:59 | Diag Imaging Result Doc PS360 ---
EXAM: CHEST-PORTABLE HISTORY: leukocytosis preadmit TECHNIQUE: AP portable upright at 1750 COMMENT: There is questionable right lower lobe atelectasis. Otherwise the appearance of the chest has not changed significantly since 10/12/2016. IMPRESSION: Subsegmental atelectasis right lower lobe. Electronically signed by Junaid Miller 11/22/2016 5:57 PM
--- NOTE | 2016-11-22 18:00 | PROVIDER DOCUMENTATION ---
This chart was entered by Tammy Reyes Scribe, acting as scribe for Jamilah Moctezuma MD. HPI-General Adult - General Stated Complaint: VOMITING Time Seen by Provider: 11/22/16 15:25 Source: patient Allergies/Adverse Reactions: Patient Allergies Allergy/AdvReac Type Severity Reaction Status Date / Time tamsulosin [From Flomax] Allergy Unknown Verified 11/06/16 22:47 Home Medications: Home Medication List Medication Instructions Recorded Confirmed Last Taken Type Polyethylene Glycol 3350 [Miralax] 17 gm PO DAILY powder, packet 09/28/1610/1210/12/16 08:00 Rx Rivaroxaban [Xarelto] 10 mg PO DAILY@0600 tablet 09/28/16 10/12/16 10/12/16 05: 00 Rx Acetaminophen 325 mg PO PRN PRN 10/12/16 10/12/16 10/12/16 01:50 History Multivitamin with Folic Acid 1 tab PO DAILY 10/12/16 10/12/16 10/12/16 08:00 History [Adult One Daily Gummies] Alfuzosin E.r. [Uroxatral] 10 mg PO QHS #30 tablet 10/17/16 Unknown Rx Ergocalciferol (Vitamin D2) 50,000 unit PO Q7D #4 capsule 10/17/16 Unknown Rx [Vitamin D] Ertapenem 1 gm/Ns [Invanz 1 gm/Ns] 1 gm .SEE ORDER DAILY #10 ivpb 10/17/16 Unknown Rx Iron Carbonyl/Ascorbic Acid 1 each PO DAILY #30 tablet 10/17/16 Unknown Rx [Icar-C] Megestrol Acetate [Megace Liquid] 400 mg PO DAILY udc 10/17/16 Unknown Rx Oxycodone I.r. [Oxy Ir] 5 mg PO Q3H PRN PRN #25 capsule 10/17/16 Unknown Rx Terazosin [Hytrin] 2 mg PO QHS #30 capsule 10/17/16 Unknown Rx - History of Present Illness -Gen Adult Nature of Presenting Problems: Pt jesse 81 year old male who came to the ED with a cc of N/V/D and hiccups for a few days. Pt has bilat hip fractures so pt is immobile. Pt reports he has abdominal pain. Location of Pain/Injury: reports: abdomen Pain Radiation: reports: no radiation Quality of Pain: reports: sharp Severity: reports: mild Onset/Duration: reports: 1 week ago Timing: reports: still present Context/Activities at Onset: reports: none Modifying Factors: improves with: nothing Associated Symptoms: reports: diarrhea, nausea, vomiting Similar Symptoms Previously?: Yes Recently seen or treated by another doctor?: No Review of Systems - Adult - REVIEW OF SYSTEMS - ADULT Constitutional: denies: chills, fever Eyes: reports: no symptoms reported Ears, Nose, Mouth & Throat: reports: no symptoms reported Cardiovascular: denies: chest pain, syncope Respiratory: denies: cough, shortness of breath Gastrointestinal: reports: abdominal pain, diarrhea, nausea, vomiting. denies: difficulty swallowing, frequent heartburn Genitourinary: denies: flank pain, hematuria Musculoskeletal: reports: no symptoms reported Integumentary: reports: no symptoms reported Neurological: reports: no symptoms reported Psychiatric: reports: no symptoms reported Endocrine: reports: no symptoms reported Hematologic/Lymphatic: reports: no symptoms reported Allergic/Immunologic: reports: no symptoms reported All Other Systems: Reviewed and Negative Past History - Adult - PAST MEDICAL HISTORY-ADULT Review of Records: reports: Old Records Reviewed, Nursing Assessment Review Major Childhood Illnesses: reports: denies history Cardiovascular: reports: denies history Respiratory: reports: denies history Gastrointestinal: reports: denies history Obstetrical/Gynecological: reports: denies history Genitourinary: reports: denies history Musculoskeletal: reports: denies history Neurological: reports: denies history Psychiatric: reports: denies history Endocrine/Immune: reports: denies history Other Conditions: reports: denies history - PRIOR SURGERIES/PROCEDURES Surgical/Procedure History: reports: hernia repair, joint replacement - PRIOR HOSPITALIZATIONS Prior Hospitalizations: reports: none - IMMUNIZATION STATUS Childhood Immunizations: See Nurse Assessment Flu Vaccine: See Nurse Assessment - FAMILY HISTORY Family History: reviewed, not pertinent Physical Exam-General - PHYSICAL EXAM-ADULT Initial Vital Signs Reviewed: Yes - CONSTITUTIONAL General Appearance: alert, mild distress - EYES Eyes: PERRL/EOMI, pink conjunctivae - HEAD, EARS, NOSE, MOUTH & THROAT HENMT: normocephalic/atraumatic, moist mucous membranes - NECK Neck: non-tender, full range of motion - RESPIRATORY Respiratory: chest non-tender, lungs clear, normal breath sounds, no pleuratic chest pain - CARDIOVASCULAR Cardiovascular: tachycardia - GASTROINTESTINAL (ABDOMEN) Abdominal Exam: abnormal bowel sounds, tenderness (RLQ) - MUSCULOSKELETAL Back Exam: normal inspection, no CVA tenderness Extremity: normal range of motion, tenderness (bilat hip fracture). negative: normal gait - SKIN Integumentary: normal color, normal turgor - NEUROLOGIC Neurologic: grossly normal - PSYCHIATRIC Psych/Mental Status: normal mood/affect, normal thought content, normal thought process, oriented x 3 Progress - PLAN OF CARE/RESULTS Progress/Plan/Lab Results: Vital Signs - 8 hr 11/22/16 15:30 Temperature 98.3 F Pulse Rate 117 H Respiratory Rate 20 Blood Pressure 106/74 O2 Sat by Pulse Oximetry 94 L Result Diagrams: 11/22/16 15:23 11/22/16 15:23 - REASSESSMENT Reassessment #1 Time Reassessed: 17:43 Status: unchanged - CT/MRI 1 CT Study: Abdomen (constipation. diverticulosis coli. possibility of stercoral colitis particularly in the rectum cannot be excluded. bibasal or atelectasis w pneumonia versus pulmonary) - CONSULTS/PCP/HOSPITALIST Notification #1 *Consult/PCP/Hospitalist*: Dr. Quinteros Time Discussed: 17:45 (discussed pt with michelle and will be admitting to Dr. Quinteros. ) Consult Disposition: Admit Departure - Departure Date of Disposition Decision: 11/22/16 Time of Disposition Decision: 17:46 DIAGNOSIS: Colitis UTI (urinary tract infection) Qualifiers: Urinary tract infection type: site unspecified Hematuria presence: without hematuria Qualified Code(s): N39.0 - Urinary tract infection, site not specified Pneumonia Qualifiers: Pneumonia type: due to unspecified organism Laterality: unspecified laterality Lung location: unspecified part of lung Qualified Code(s): J18.9 - Pneumonia, unspecified organism Disposition: ADMITTED INPATIENT 09 Certified Medical Emergency: Emergent Condition: Stable - Critical Care Note This patient required my direct & personal management of CC.: No Attestation - Physician/ SHERRILL Attestation Patient care was provided by Advanced Practice Provider:: No The physician spent face to face time with patient:: Yes Advanced Practice Provider documentation review:: Supervising physician onsite and consulted in the evaluation and care of this patient. The physician did have a face to face encounter with the patient. This chart was documented by the indicated scribe, (Tammy Reyes Scribe) and accurately reflects the services I performed and decisions made by me, Jamilah Moctezuma MD, as attested by the provider's signature.
[2016-11-22] MEDS ORDERED: TYLENOL PO PRN (20:26)
[2016-11-22] MEDS: NS 1,000 ML IV SCH (21:51)
[2016-11-22] MEDS: HYTRIN PO SCH (21:52)
[2016-11-22] MEDS: UROXATRAL PO SCH (21:52)
[2016-11-22] MEDS: MORPHINE IV PRN (21:52)
[2016-11-23] MEDS: FLAGYL 500 MG/NS 500 MG/100 ML IVPB IV SCH ×3 (01:49→17:35)
[2016-11-23] MEDS: MORPHINE IV PRN ×3 (01:50→21:35)
--- NOTE | 2016-11-23 04:59 | HISTORY AND PHYSICAL ---
PRIMARY CARE PHYSICIAN: Dr. Poli Bragg. CHIEF COMPLAINT: Abdominal pain and vomiting. HISTORY OF PRESENT ILLNESS: Mr. Lakhani is an 81-year-old male with a past medical history of transitional cell cancer of the bladder, BPH, ESBL UTI, bradycardia, and right bundle branch block which was recently diagnosed, who comes to the hospital complaining of abdominal pain. According to the patient and his daughter, who is helping for the HPI, the patient has had decreased p.o. intake for the last week due to abdominal pain and also this morning, he vomited in the morning. Also, he started having diarrhea approximately 4 times this morning. The patient's daughter states that he seems more confused and lethargic than usual. In the emergency room, the patient was given metronidazole 500 mg, levofloxacin 750 mg, ceftriaxone 1 g. Blood cultures were obtained. REVIEW OF SYSTEMS: Negative except as stated above. PAST MEDICAL HISTORY: 1. Transitional cell cancer of the bladder. 2. BPH. 3. ESBL UTI. 4. Right bundle branch block with bradycardia. PAST SURGICAL HISTORY: 1. Right hip hemiarthroplasty. 2. Transurethral resection of a bladder tumor. 3. Right urethral double-J stent. 4. Left bipolar hemiarthroplasty. 5. The patient has a pending procedures for December 10 for a pacemaker placement. ALLERGIES: Flomax. The patient states that the Flomax makes him fall, which is not a true allergy. HOME MEDICATIONS: 1. Polyethylene glycol 17 g oral daily p.r.n. constipation. 2. Iron 100 mg tablet oral daily. 3. Megace 40 mg/mL syrup 10 mL oral for appetite stimulation. 4. Escitalopram 10 mg tablet oral daily. 5. Vitamin D3 50,000 units every Thursday. 6. Alfuzosin extended release 10 mg tablet oral at bedtime. 7. Terazosin 2 mg capsule oral daily. 8. Acetaminophen 325 mg p.r.n. pain. 9. Oxycodone 5 mg every 3 hours p.r.n. pain. SOCIAL HISTORY: The patient is currently a resident at [facility]. The patient is . Patient denies any tobacco, alcohol, or illicit drug use. PHYSICAL EXAMINATION: VITAL SIGNS: Temperature 98.3 degrees, pulse 107, respirations 20, blood pressure 121/76, oxygen saturation 92% on room air. GENERAL: Patient is alert and oriented x2. No acute distress. HEENT: Head is normocephalic, atraumatic. Eyes, RJ. Moist mucous membranes. NECK: Supple. PULMONARY: Well-ventilated bilaterally. No wheezing, rales, or crackles. CARDIOVASCULAR: S1, S2. Soft +1 systolic murmur on the left sternal border. ABDOMEN: Soft, nondistended, nontender. EXTREMITIES: No lower extremity edema. NEUROLOGIC: Cranial nerves 2-12 grossly intact. No focal deficits. LABORATORY DATA: White blood cell count 19.8, hemoglobin 11.4, hematocrit 33.8, platelets 539,000. Sodium 141, potassium 4.2, BUN 30, creatinine 0.8. Amylase 17, lipase 11. Urinalysis positive for UTI. IMAGING: Chest x-ray shows a questionable right lower base atelectasis. Abdomen and pelvis with IV contrast CT scan shows a large left renal cyst 9.7 cm and a 6 cm renal cyst in the right kidney. Apparently a large amount of stool and likely stercoral diverticulosis in descending colon. ASSESSMENT AND PLAN: 1. Stercoral diverticulosis. Likely, this is the patient's source of abdominal pain and leukocytosis. Blood cultures are pending. Antibiotics were already started in the emergency room. We will continue metronidazole and levofloxacin. We will follow closely CBC and Chem 8 in the morning. The patient is currently on a clear liquid diet. 2. Urinary tract infection. Urinalysis was positive for a urinary tract infection. However, patient has had a Lane catheter in place for several weeks now secondary to urinary retention and failed attempts to remove the Lane catheter since patient developed urinary retention again. The patient is already being given antibiotics for the colitis so this will cover the urinary tract infection as well. 3. Right bundle branch block. In the meantime, we will continue to monitor. Patient is stable and asymptomatic. 4. Benign prostatic hypertrophy. We will continue patient's home medications of Zosyn 10 mg and terazosin 2 mg. 5. Depression. We will continue patient's home medication of escitalopram 10 mg tablet oral daily. 6. Transitional cell cancer of the bladder. Currently, patient does not seem to be on any medication. However, on CT scan, there are renal cysts present which may warrant further evaluation considering that the patient has a history of transitional cell cancer of the bladder. The patient denies any hematuria. CODE STATUS: Confirmed with the patient's daughter, full code. cc: Babita Pineda MD
[2016-11-23] MEDS: XARELTO PO SCH (06:02)
[2016-11-23 07:01] LABS: HEMATOCRIT 34.5 % (42.0-52.0); HEMOGLOBIN 10.8 g/dL (14.0-18.0); MCH 28.5 PG (27-31); MCHC 31.3 g/dL (33-37); MPV 9.6 FL (7.4-10.4); RBC 3.79 XMIL (4.7-6.1)
[2016-11-23 07:20] LABS: AGAP 14; BUN 23 mg/dL (8-22); CALCIUM 8.7 mg/dL (8.8-10.2); CHLORIDE 112 mmol/L (98-107); COSMO 302; POTASSIUM 3.6 mmol/L (3.5-5.1); SODIUM 150 mmol/L (136-145); TCO2 24 mmol/L (25-35)
[2016-11-23] MEDS: NS 1,000 ML IV SCH ×3 (10:09→21:33)
[2016-11-23] MEDS: ICAR-C PO SCH (10:10)
[2016-11-23] MEDS: NEPHROCAPS PO SCH (10:10)
--- NOTE | 2016-11-23 16:01 | PROGRESS NOTE ---
DATE: 11/23/2016 SUBJECTIVE: This is a patient of Dr. Bragg with abdominal pain and vomiting. Mr. Lakhani is an 81-year-old with past medical history of transitional cell cancer of the bladder, benign prostatic hypertrophy, extended spectrum beta-lactam, UTI, bradycardia, right bundle branch block. She was recently diagnosed, came to the hospital complaining of abdominal pain. According the patient and his daughter who was helping with the HPI, the patient has had decreased p.o. intake for the last week due to abdominal pain in the morning with vomiting. He also stated he had diarrhea approximately 4 times yesterday. Patient's daughter states that he seems more confused and lethargic than usual. In the emergency room, the patient was given Flagyl 500 mg, levofloxacin 750 mg, ceftriaxone 1 g. PAST MEDICAL HISTORY: 1. Transitional cell cancer of the bladder. 2. Benign prostatic hypertrophy. 3. Extended spectrum beta lactam urinary tract infection. 4. Right bundle-branch block. Bradycardia. PAST SURGICAL HISTORY: 1. Right hip hemiarthroplasty. 2. Transurethral resection of bladder tumor. 3. Right urethra double-J stent. 4. Left bipolar hemiarthroplasty. 5. Patient had pending procedures on December 10 with pacemaker placement. ASSESSMENT: 1. He was admitted with diverticulosis. This patient's source of abdominal pain and leukocytosis is felt likely due to diverticulosis. Blood cultures are pending. Antibiotics already started in the emergency room, so concerned about diverticulitis. 1. Urinary tract infection. Urinalysis is possible for urinary tract infection. However the patient has a Lane in place for several weeks now secondary urinary retention. Failed attempts at removal of Lane catheterization and development of urinary tract infection. He is being given antibiotics to cover extended spectrum or beta-lactam resistant organisms. 2. Right bundle-branch block. Heart monitor. 3. Benign prostatic hypertrophy. Continue his home medications, Zosyn and terazosin. 4. Depression. He is on Lexapro 10 mg a day. 5. Transitional cancer of the bladder, not on any medications at present time I believe. CT scan, there were some renal cysts present which may warrant further evaluation. cc: Ramsey Candelario MD
[2016-11-23] MEDS ORDERED: CALMOSEPTINE OINTMENT TOP PRN (16:03)
[2016-11-23] MEDS: LEVAQUIN 750 MG/D5W 750 MG/150 ML IVPB IV SCH (21:35)
[2016-11-23] MEDS: UROXATRAL PO SCH (21:35)
[2016-11-23] MEDS: HYTRIN PO SCH (21:35)
[2016-11-24] MEDS: FLAGYL 500 MG/NS 500 MG/100 ML IVPB IV SCH ×3 (01:33→18:19)
[2016-11-24] MEDS: IMODIUM PO PRN ×2 (01:33→05:09)
[2016-11-24] MEDS: MORPHINE IV PRN ×2 (01:33→05:10)
[2016-11-24] MEDS: XARELTO PO SCH (05:09)
[2016-11-24] MEDS: NS 1,000 ML IV SCH ×2 (07:45→23:08)
[2016-11-24] MEDS: NEPHROCAPS PO SCH (09:49)
[2016-11-24] MEDS: ICAR-C PO SCH (09:49)
--- NOTE | 2016-11-24 16:46 | PROGRESS NOTE ---
DATE: 11/24/2016 SUBJECTIVE: Mr. Lakhani 81-year-old, past medical history transitional cell cancer of the bladder, benign prostatic hypertrophy, extended spectrum beta-lactam UTI, bradycardia, right bundle branch block recently diagnosed with a bundle-branch block, came in the hospital complained of abdominal pain but family states he has been getting weaker and not really tolerating physical therapy, apparently had dislocation of his hip which he recently had a hip fracture and had a bipolar hemiarthroplasty, had right hip hemiarthroplasty, left bipolar hemiarthroplasty recently I think was the right, transurethral resection bladder tumor, right urethral double-J stent. He had a pacemaker placement December 10. He is more alert today, he is more awake but still very weak and puny. EXAM: Vital signs: Temperature 97.9 degrees, pulse 50, respirations 18, blood pressure 106/43. HEENT: Pupils are equal, round. Lungs: Are clear in all lung rondon. Cardiovascular: Regular rhythm and rate without murmur or S3. Abdomen: Soft. Skin: Is warm and dry. Urine output 1300 mL. LAB: On the from yesterday unremarkable, serum creatinine 0.8, potassium 3.6, hematocrit 34. ASSESSMENT AND PLAN: 1. Urinary tract infection urinalysis possibly for urinary tract and he has got gram-negative myranda per culture, Lane in place for several weeks due to urinary retention, failed attempts removal Lane catheterization and developing infections have been his recent history. Continue present antibiotics. 2. Right bundle branch block. 3. Benign prostatic hypertrophy. Continue his current medication. 4. Depression. 5. History of transitional cell bladder cancer. 6. Has had a broken hip, is at rehab, dislocation of the hip apparently from a fall so has had a rough go, he is not walking at this point. He is on iron, getting Levaquin for urinary tract infection, Xarelto 10 mg a day, Hytrin 2 mg p.o. at bedtime, he is on Lane catheter, vitamin B, getting Flagyl 500 mg IV q.8, alfuzosin, Uroxatral 10 mg at bedtime. We will continue his physical therapy. Recheck electrolytes, CBC, T4, TSH, B12, folate. I had discussion with daughter. I do not know how much improvement will be able to we need to pursue better p.o. intake and his physical therapy. He is getting normal saline at 80 mL an hour. 7. He also has history transitional cell bladder cancer and history of extended spectrum beta lactam urinary tract infections, current culture shows gram negative myranda. Blood cultures were negative. Further ID pending but colony count was greater than 100,000. cc: Ramsey Candelario MD
--- NOTE | 2016-11-24 18:43 | CONSULTATION ---
DATE OF CONSULTATION: 11/24/2016 REASON FOR CONSULTATION: Recent left bipolar hemiarthroplasty by Dr. Shukla with recent dislocation. HISTORY OF PRESENT ILLNESS: Mr. Lakhani is an 81-year-old male with a past medical history of transitional cell cancer of the bladder, BPH, ESBL, UTI, bradycardia and right bundle branch block. He initially presented to the emergency room with nausea, vomiting and abdominal pain. He presented from [facility] while he has been recovering from a recent left bipolar hemiarthroplasty related to a displaced femoral neck fracture. The surgery was done on 09/25/[address] Shukla. Apparently about a month later on 11/06/2016, he presented to the emergency room again with a hip dislocation that was reduced in the ER. Since that time he has been ambulating less and less. We have been consulted for evaluation and treatment, and to determine how to progress with physical therapy. PAST MEDICAL HISTORY: 1. Transitional cell cancer of the bladder. 2. BPH. 3. ESBL UTI. 4. Right bundle branch block with bradycardia. PAST SURGICAL HISTORY: 1. Left bipolar hemiarthroplasty of the hip in 2016. 2. Right hip hemiarthroplasty in 2014. ALLERGIES: Flomax. HOME MEDICATIONS: 1. MiraLAX 17 g oral daily p.r.n. constipation. 2. Iron 100 mg tab oral daily. 3. Megace 40 mg for appetite stimulation. 4. Citalopram 10 mg tablet oral daily. 5. Escitalopram 5. 6. Vitamin D3, 50,000 units on Thursday. 7. Zosyn Extended Release 10 mg tablet oral at bedtime. 8. Terazosin 2 mg capsule oral daily. 9. Acetaminophen 325 mg p.r.n. pain. 10. Oxycodone 5 mg every 3 hours p.r.n. severe pain. SOCIAL HISTORY: The patient is currently a resident in [facility]. REVIEW OF SYSTEMS: A 12 point review of systems was reviewed and is negative except for as stated in the HPI. PHYSICAL EXAMINATION: Vital Signs: Temperature 97.9 degrees, heart rate 53, respiratory rate 20, blood pressure is 126/38, 96% on room air. General: This is an 81-year-old man who is resting comfortably in the bed. He does appear weak. HEENT: Head is normocephalic, atraumatic. Pupils are equal, round, reactive to light. Pulmonary: His breathing is even and nonlabored. He has bilateral breath sounds. Cardiovascular: Heart regular rate and rhythm. Abdomen: Soft, nondistended, nontender. Extremities: He has good range of motion in all extremities although he is weak specifically in the left lower extremity. The incision to the hip is healing very well. There is no erythema or drainage. He has a 2+ pedal pulse. He has good sensation down the legs into the feet. He has no numbness or tingling. Again he has full range of motion of the leg but he is very weak. He is not complaining of any pain. He is currently in an abduction pillow. The right foot is actually slightly externally rotated but he has good range of motion there as well. No pain. Good sensation. 2+ pedal pulse. Neurological: He is awake, alert, and coherent. He is very hard of hearing. He is not a good historian. ASSESSMENT: Status post left bipolar hemiarthroplasty with previous dislocation. PLAN: There have not been any radiographs done yet. I will order a pelvis x- ray now to evaluate the hip. We will keep him in an abduction pillow until we have more information. He is not hurting or complaining of any pain to the hip. He has good range of motion. He is not externally rotated on the left side. Hopefully we will confirm good position and be able to get him to start working back with physical therapy. Further treatment plan will depend on hospital course and results of the imaging. Dictated by ADORE Bunn for Rajiv Cm MD cc: ADORE Bunn MD [facility]
--- NOTE | 2016-11-24 18:47 | Diag Imaging Result Doc PS360 ---
PELVIS - 11/24/2016 INDICATION: recent left hip dislocation TECHNIQUE: COMPARISON: 11/07/2016 FINDINGS: There are bilateral femoral head prosthetics. No fracture or dislocation. No hardware loosening. IMPRESSION: No acute disease or complication. Electronically signed by Parminder Chambers 11/24/2016 6:45 PM
[2016-11-24] MEDS: LEVAQUIN 750 MG/D5W 750 MG/150 ML IVPB IV SCH (21:20)
[2016-11-24] MEDS: UROXATRAL PO SCH (21:21)
[2016-11-24] MEDS: HYTRIN PO SCH (21:21)
[2016-11-25] MEDS: FLAGYL 500 MG/NS 500 MG/100 ML IVPB IV SCH (01:28)
[2016-11-25] MEDS: XARELTO PO SCH (05:50)
[2016-11-25] MEDS ORDERED: ZOSYN 3.375 GM/NS 3.375 GM/50 ML IVPB IV SCH (07:45)
--- NOTE | 2016-11-25 08:29 | CONSULTATION ---
DATE OF CONSULTATION: 11/25/2016 CONCLUSION: The patient was unable provide a history. The history was obtained by looking at data in the computer. The patient was admitted with abdominal pain, vomiting, and weakness. I agree with Dr. Candelario that the patient's urinary tract infection most likely is causing the above symptoms. In addition, on CT scan, it was seen that there could be bibasilar infiltrates causing pneumonia. RECOMMENDATIONS: I have discontinued the patient's current antibiotics and have placed him on meropenem. It is of note that the patient in October did have an extended spectrum beta lactamase producing E. coli urinary tract infection. Therefore, I think it would be appropriate to use an antibiotic that would cover extended spectrum beta lactamase producing organisms as well as Pseudomonas. Meropenem would be able to do both things. DISCUSSION: As mentioned above, the patient is not able to give a history. He was complaining of abdominal pain. He had a decrease in intake. Also, he had vomiting and diarrhea. The patient's CBC shows a white count of 17,050, hemoglobin 10.8, and platelet count 376,000. Creatinine is 0.8. GFR is greater than 60. Liver function studies are normal. Urinalysis showed white cells and bacteria. Blood cultures are sterile. Urine is growing Pseudomonas and another gram-negative myranda. CT scan of the abdomen shows possible stercoral colitis and bibasilar atelectasis versus pneumonia. REVIEW OF SYSTEMS: Unable to be obtained. PAST MEDICAL HISTORY: Positive for transitional cell cancer of the bladder, benign prostatic hypertrophy, extended spectrum beta lactamase producing E. coli UTI, and a right bundle branch block with bradycardia. PAST SURGICAL HISTORY: Positive for a right hip hemiarthroplasty, transurethral resection of a bladder tumor, placement of a urethral double-J stent. The patient also has had a left bipolar hemiarthroplasty. It said that the patient has an appointment on December 10 to have a permanent pacemaker placed. ALLERGIES: Flomax. HOME MEDICATIONS: Include polyethylene glycol, iron, Megace, escitalopram, Vitamin D, alfuzosin, terazosin, acetaminophen, and oxycodone. SOCIAL HISTORY: The patient lives at [facility]. The patient is a . Patient denied earlier that he smokes cigarettes, drank alcoholic beverages, or abused drugs. PHYSICAL EXAMINATION: Vital Signs: Temperature is 98.1 degrees, pulse 52, respirations 22, blood pressure 126/43. General: This is an elderly, chronically ill-appearing male. He is in no acute distress. Head, Eyes, Ears, Nose, and Throat: No drainage noted from the nose or ears. Patient did respond to requests, indicating that he has some degree of hearing. The patient did not open his mouth when I asked. Neck: No stiffness. Lungs: Clear to auscultation. Cardiovascular: Regular heart rate which is slow. Abdomen: Soft and nontender. Neurologic: Patient is lethargic. He was arousable. He did move his extremities to my request. There was no tremor. Integument: No rash noted. Thank you for the consult. cc: Corona Muhammad MD
[2016-11-25] MEDS: NEPHROCAPS PO SCH (09:12)
[2016-11-25] MEDS: ICAR-C PO SCH (09:12)
[2016-11-25] MEDS: NS 1,000 ML IV SCH (10:17)
[2016-11-25] MEDS: MERREM 1 GM in NS 50 ML IV SCH ×2 (10:17→18:16)
--- NOTE | 2016-11-25 13:02 | PROGRESS NOTE ---
DATE: 11/25/2016 SUBJECTIVE: Mr. Lakhani is awake and alert. He has had the hiccups over a couple hours. Otherwise, he feels comfortable. He is alert and oriented x3. OBJECTIVE: Vital Signs: Temp 98.1 degrees, pulse 50, respirations 16, blood pressure 123/43. Lungs: Clear in all lung rondon. Cardiovascular exam: Regular rhythm and rate without murmur or S3. Abdomen: Soft. Skin: Warm and dry. : Good urine output, over 500 mL. LAB: Review from the : Still had an elevated white count. We will check that again tomorrow. Electrolytes looked good on the . ASSESSMENT: 1. Appreciate Dr. Muhammad or Dr. Shukla's help. He was admitted with abdominal pain, vomiting and weakness. Patient's urinary tract infection most likely causing the symptoms. He did have some bibasilar infiltrates. Dr. Muhammad discontinued the present antibiotics and placed him on meropenem. He has a history of extended spectrum beta lactam Escherichia coli I believe, and so we will use this antibiotic, meropenem. Questionable pneumonia. So, will continue present antibiotic. Respiratory status appears good. 2. He has had hip surgery and understand hip dislocation. Hip x-ray showed no acute disease or complication. So, I feel like we could maybe start physical therapy. He recently had a bipolar hemiarthroplasty per Dr. Shukla. He had a displaced femoral neck fracture. Surgery was done on 09/25/[address] Shukla. Apparently about a month later, 11/06/2016, presented to the emergency room, had a hip dislocation, was reduced in the emergency room. He has not ambulated much, not been able to pursue physical therapy much in rehabilitation. 3. History of transitional cell cancer of the bladder. 4. Benign prostatic hypertrophy. 5. Recently diagnosed with right bundle branch block. SURGICAL HISTORY: He has had a left bipolar hemiarthroplasty in 2016, right hip hemiarthroplasty 2014. PLAN: Will continue physical therapy. He seems to be a little stronger. Encourage p.o. intake. Will check some lab again in the morning. REVIEW OF ORDERS: I do not see any change. I will discuss with orthopedic before we initiate physical therapy. He is on Hytrin 2 mg at bedtime. He is on Xarelto 10 mg daily. He is getting normal saline at 80 mL an hour, meropenem 1 g q. 8 hours. He is getting iron supplement, folic acid and vitamin B complex one a day. He is on Alfuzosin or Uroxatral 10 mg at bedtime. So, we will check some more lab in the morning. I will recheck a chest x-ray, make sure we check B 12 and folate as well. Encourage p.o. intake. cc: Ramsey Candelario MD
[2016-11-25] MEDS: HYTRIN PO SCH (21:08)
[2016-11-25] MEDS: UROXATRAL PO SCH (21:08)
[2016-11-26] MEDS: MERREM 1 GM in NS 50 ML IV SCH ×3 (00:36→16:02)
[2016-11-26] MEDS: NS 1,000 ML IV SCH ×2 (00:40→13:30)
[2016-11-26] MEDS: XARELTO PO SCH (05:43)
[2016-11-26 07:25] LABS: MANUAL DIFF NEEDED? NO
[2016-11-26 07:30] LABS: BASO% 0.2 % (0.0-0.8); EOS# 0.59 X1000 (0.0-0.7); EOS% 5.5 % (0.0-10.0); HEMATOCRIT 31.2 % (42.0-52.0); HEMOGLOBIN 10.2 g/dL (14.0-18.0); IMM GRAN# 0.02 X1000 (0.0-0.04); IMM GRAN% 0.2 % (0.0-0.5); LYMPH# 1.91 X1000 (1.2-3.4); LYMPH% 17.8 % (20.5-51.1); MCH 28.5 PG (27-31); MCHC 32.7 g/dL (33-37); MCV 87.2 FL (81-99); MONO# 1.01 X1000 (0.11-0.59); MONO% 9.4 % (1.7-9.3); MPV 9.8 FL (7.4-10.4); NEUT% 66.9 % (42.2-75.2); PLT 404 X1000 (130-400); RBC 3.58 XMIL (4.7-6.1)
--- NOTE | 2016-11-26 07:34 | Diag Imaging Result Doc PS360 ---
EXAM: CHEST-PORTABLE INDICATION: pneumonia TECHNIQUE: One view COMPARISON: 11/22/2016 FINDINGS: Inspiration is suboptimal. There is increasing opacity at the right lung base suggesting developing infiltrate. No other new consolidation is appreciated. Cardiac silhouette is stable. IMPRESSION: Developing right basilar infiltrate suspicious for pneumonia. Electronically signed by Hunter Albright 11/26/2016 7:31 AM
[2016-11-26 07:47] LABS: AGAP 11; ALBUMIN 2.2 g/dL (3.5-5.0); ALKALINE PHOSPHATASE 71 U/L (32-122); BUN 12 mg/dL (8-22); CALCIUM 8.3 mg/dL (8.8-10.2); CHLORIDE 110 mmol/L (98-107); COSMO 284; GOT 12 U/L (10-34); GPT 11 U/L (10-44); POTASSIUM 3.2 mmol/L (3.5-5.1); SODIUM 143 mmol/L (136-145); TCO2 22 mmol/L (25-35); TOTAL BILIRUBIN 0.35 mg/dL (0.20-1.00)
[2016-11-26] MEDS: NEPHROCAPS PO SCH (10:39)
[2016-11-26] MEDS: ICAR-C PO SCH (10:39)
--- NOTE | 2016-11-26 17:36 | PROGRESS NOTE ---
DATE: 11/26/2016 PRESENT ILLNESS: The patient has a urinary tract infection with Pseudomonas and a gram-negative myranda which has not yet been identified. In addition, his chest x-ray shows right lower lobe pneumonia. MEDICATIONS: The patient is on meropenem. PHYSICAL EXAMINATION: Vital Signs: Temperature is 98.3 degrees, pulse 47, respirations 17, blood pressure 125/45. General: This is a very lethargic, elderly male. He appears to be sleeping and it is very difficult to arouse him much. Lungs: Clear to auscultation. Cardiovascular: Heart rate was slow and at times I thought it was irregular but for the most part it seemed to be regular. Abdomen/flank: Soft and nontender. Legs: There was no erythema. LAB AND X-RAY: Chest x-ray shows right lower lobe pneumonia. CBC shows a white count of 10,730, hemoglobin 10.2, and platelet count 404,000. Creatinine is 0.7. GFR is greater than 60. Liver function studies are normal. ASSESSMENT AND PLAN: Patient has a urinary tract infection which is symptomatic. He also appears to have right lower lobe pneumonia. My plan will be to continue meropenem and add vancomycin to provide staphylococcal protection in case the patient has a MRSA component to his pneumonia. COMORBIDITIES: Bladder cancer, previous urinary tract infections, recent hip surgery. cc: Corona Muhammad MD
--- NOTE | 2016-11-26 18:06 | PROGRESS NOTE ---
DATE: 11/26/2016 SUBJECTIVE: He is awake and alert, feels like he is stronger. He still has the hiccups. He has had them for most of the last 24 hours, I think. OBJECTIVE: Vital signs: Temperature 98.3 degrees, pulse 47, respirations 17, blood pressure 125/45. Lungs: Clear in all lung rondon. Cardiovascular: Regular rhythm and rate without murmur or S3. Abdomen: Soft. Skin: Warm and dry. Genitourinary: Urine output was 2800. LAB: Reviewed from today. White count 25307, so it has come down nicely. It was 17 yesterday and 19 the day before. Hematocrit 31, platelet count 404,000. Chemistry: Sodium 143, potassium 3.2, chloride 110, BUN 12, creatinine 0.7. His magnesium looked good at 2.0. Chest x-ray from this morning developing right basilar infiltrates suspicious for pneumonia. ASSESSMENT AND PLAN: 1. Appreciated Dr. Muhammad' and Dr. Shukla's help. He will begin some physical therapy. He did have some bibasilar infiltrates. We will continue present antibiotics. He has a history of extended spectrum beta-lactam E. coli so he is on Meropenem. 2. He had hip surgery then hip dislocation, so we would like to see if we can get him back on rehab under Orthopedics' direction. He has recently had a bipolar hemiarthroplasty and then I think he had dislocation after that, but he seems to be comfortable. 3. History of transitional cell cancer of the bladder. 4. Benign prostatic hypertrophy. 5. He was diagnosed with right bundle branch block recently. 6. He is on Xarelto 10 mg a day, Hytrin 2 mg at bedtime. He is getting meropenem 1 g q.8 hours, iron carbonyl, ascorbic acid 1 a day, folic acid, vitamin D 1 a day and Uroxatral mg at bedtime. We will give him a little bit of potassium. Renal function looks good. cc: Ramsey Candelario MD
[2016-11-26] MEDS: KLOR-CON PO SCH (18:56)
[2016-11-26] MEDS: UROXATRAL PO SCH (21:36)
[2016-11-26] MEDS: HYTRIN PO SCH (21:36)
[2016-11-27] MEDS: MERREM 1 GM in NS 50 ML IV SCH ×3 (01:45→17:47)
[2016-11-27] MEDS: NS 1,000 ML IV SCH ×2 (04:01→17:44)
[2016-11-27] MEDS: MORPHINE IV PRN (05:22)
[2016-11-27] MEDS: XARELTO PO SCH (05:22)
[2016-11-27] MEDS: ICAR-C PO SCH (09:56)
[2016-11-27] MEDS: KLOR-CON PO SCH (09:57)
[2016-11-27] MEDS: NEPHROCAPS PO SCH (09:57)
--- NOTE | 2016-11-27 13:06 | PROGRESS NOTE ---
DATE: 11/27/2016 Mr. Lakhani is feeling better. His hiccups have resolved. Breathing comfortably. Feels a little stronger. Temp 97.7 degrees, pulse 74, respirations 16, blood pressure 122/70. Lungs: Are clear in all lung rondon. Cardiovascular: Regular rhythm and rate without murmur or S3. Abdomen: Soft. Skin: Warm and dry. Urine output with over 4 L. LAB: From the 16th reviewed. Hematocrit stable at 31. Chemistries: Sodium 143, potassium 3.2, chloride 110, and bicarb 22, BUN 12, creatinine 0.7. Looking at his calculated osmolality which is fine. His liver functions, transaminases were fine. His albumin 3.4. ASSESSMENT AND PLAN: 1. He has had bibasilar infiltrates. He seemed to be lethargic. We are treating with antibiotics but we are mainly treating his extended spectrum beta lactamase E. coli which he has had infection for a long time. He is on meropenem and he appears clinically improved. 2. Had surgery on his hip with I think a hip fracture and then he had a hip dislocation so he has been at rehab and has not been able to pursue rehabilitation, getting physical therapy. He had a bipolar hemiarthroplasty a couple months ago. 3. Transitional cell cancer of the bladder in the past. 4. Benign prostatic hypertrophy. 5. Diagnosis of bundle branch block. He is on Xarelto. Note his potassium a little low and I may supplement that. Getting folic acid. cc: Ramsey Candelario MD
[2016-11-27] MEDS: HYTRIN PO SCH (20:46)
[2016-11-27] MEDS: UROXATRAL PO SCH (20:46)
[2016-11-28] MEDS: MERREM 1 GM in NS 50 ML IV SCH ×3 (01:42→16:43)
[2016-11-28] MEDS: XARELTO PO SCH (05:49)
[2016-11-28] MEDS: NS 1,000 ML IV SCH ×2 (05:49→18:46)
[2016-11-28] MEDS: ICAR-C PO SCH (09:13)
[2016-11-28] MEDS: NEPHROCAPS PO SCH (09:13)
[2016-11-28] MEDS: KLOR-CON PO SCH (09:13)
--- NOTE | 2016-11-28 14:18 | PROGRESS NOTE ---
DATE: 11/28/2016 Mr. Lakhani is awake and alert. Very hard of hearing. No sign of distress. Wanted know when he is going home.Vital Signs: Temp is 98.4 degrees, pulse 80, respirations 20, blood pressure 137/72. Lungs: Are clear in all lung rondon. Cardiovascular: Regular rhythm and rate without murmur or S3. Abdomen: Soft. Skin: Is warm and dry. Good urine output over 4 L. LABS: Reviewed from . We have supplemented his potassium. ASSESSMENT AND PLAN: 1. He has bibasilar infiltrates which are improving. Continue antibiotics. Also treat him for extended spectrum beta lactam E. coli urinary tract infection. 2. Surgery on his hip with hip fracture and dislocation. Continue rehab. Appears to be doing better. 3. History of transitional cell cancer in the bladder in the past. 4. Benign prostatic hypertrophy. 5. Recently diagnosed bundle branch block. I will check electrolytes and chest x-ray again. Hopefully he can go back to rehab on Thursday. cc: Ramsey Candelario MD
--- NOTE | 2016-11-28 18:18 | PROGRESS NOTE ---
DATE: 11/28/2016 PRESENT ILLNESS: The patient has a Pseudomonas and extended spectrum beta lactamase producing E coli urinary tract infection. The patient also has an early right lower lobe pneumonia. MEDICATION: This is day 3 of treatment with meropenem. PHYSICAL EXAMINATION: Vital Signs: Temperature is 98 degrees, pulse 94, respirations 20, blood pressure 104/52. General: This is a chronically ill-appearing, elderly male who is in no acute distress. He is awake today. Lungs: Clear to auscultation. Cardiovascular: Regular heart rate. Abdomen: Soft and not tender. LAB AND X-RAY: The patient's CBC shows a white count 10,730, hemoglobin 10.2, platelet count 404,000. Chest x-ray shows right lower lobe infiltrate. Blood cultures are negative. Urine is growing Pseudomonas and an extended spectrum beta lactamase producing E coli. ASSESSMENT AND PLAN: Will be to just continue meropenem as a single agent. This appears to be successful in view of the fact that the white count now which was elevated is in the normal range. COMORBIDITIES: Include the fact that he is elderly, he has had bladder cancer and recently had hip surgery. He previously had urinary tract infections. cc: Corona Muhammad MD
[2016-11-28] MEDS: HYTRIN PO SCH (23:56)
[2016-11-28] MEDS: MORPHINE IV PRN (23:56)
[2016-11-28] MEDS: UROXATRAL PO SCH (23:57)
[2016-11-29] MEDS: NS 1,000 ML IV SCH ×2 (06:19→17:06)
[2016-11-29] MEDS: XARELTO PO SCH (07:00)
[2016-11-29] MEDS: MERREM 1 GM in NS 50 ML IV SCH ×4 (10:00→17:07)
[2016-11-29] MEDS: NEPHROCAPS PO SCH (10:24)
[2016-11-29] MEDS: KLOR-CON PO SCH (10:24)
[2016-11-29] MEDS: ICAR-C PO SCH (10:24)
--- NOTE | 2016-11-29 15:49 | PROGRESS NOTE ---
DATE: 11/29/2016 Today Mr. Lakhani is feeling much better. He is asking when he can go home. He is hoping he can leave on Thursday.Vital signs: Temperature 97.5 degrees, pulse 92, respirations 19, blood pressure 120/65. Lungs: Are clear in all lung rondon. Cardiovascular: Regular rhythm and rate without murmur or S3. Abdomen: Soft. Skin: Is warm and dry. Urine output 2800 mL. LAB: Reviewed from the 16th. Unremarkable. Hematocrit stable at 31. ASSESSMENT AND PLAN: 1. Pseudomonas and extended spectrum beta lactamase producing E. coli urinary tract infection. Also has early right lower lobe pneumonia. This is day 4 of treatment of meropenem. Seems to be improving. 2. Lethargy and some confusion which is improved. 3. He has had surgery on his hip fracture and dislocation, back with physical therapy. 4. History of transitional cell carcinoma. 5. History of benign prostatic hypertrophy. 6. Recently diagnosed with bundle-branch block. Orders. I do not see any change. Patient on Uroxatral 10 mg a day. Folic acid 1 mg a day. Iron, carbinol, ascorbic acid 1 a day. Meropenem 1 g q.8. Potassium chloride 40 mEq daily. Xarelto 10 mg a day. Hytrin 2 mg at bedtime, and he is getting normal saline at 80 mL an hour. Continue his physical therapy. cc: Ramsey Candelario MD
[2016-11-29] MEDS: UROXATRAL PO SCH (22:45)
[2016-11-29] MEDS: HYTRIN PO SCH (22:45)
[2016-11-30] MEDS: MERREM 1 GM in NS 50 ML IV SCH ×3 (01:23→16:50)
[2016-11-30] MEDS: XARELTO PO SCH (05:40)
[2016-11-30] MEDS: NS 1,000 ML IV SCH ×2 (05:42→18:00)
[2016-11-30] MEDS: NEPHROCAPS PO SCH (09:37)
[2016-11-30] MEDS: ICAR-C PO SCH (09:37)
[2016-11-30] MEDS: KLOR-CON PO SCH (09:37)
--- NOTE | 2016-11-30 14:58 | PROGRESS NOTE ---
DATE: 11/30/2016 SUBJECTIVE: Mr. Lakhani is feeling better and feels a little stronger. He remains afebrile. He is eating although he needs a little help and assistance. OBJECTIVE: Vital signs: Temp 98.4 degrees, pulse 96, pulse 18, blood pressure 125/65. HEENT: Pupils are equal, round. Lungs: Clear in all lung rondon. Cardiovascular: Regular rhythm and rate without murmur or S3. Abdomen: Soft. Skin: Warm and dry. Intake and output: Urine output is 5100 mL. LAB: Reviewed from the . ASSESSMENT: 1. Pseudomonas and extended spectrum beta lactamase producing Escherichia coli urinary tract infection. He is also treated for right lower lobe pneumonia. He is on his 5th day of meropenem, doing well and seems to be improving. 2. Lethargy and confusion, which has improved steadily. 3. He has had a history recent surgery on his hip fracture and dislocation following that. He is back in physical therapy. Seems to be comfortable. 4. History of transitional cell carcinoma several years ago. 5. History of benign prostatic hypertrophy. 6. Recently diagnosed with bundle-branch block. PLAN: So, he is making progress. I think he will need to go to rehab and may need to go to a longterm. We will continue the physical therapy. We will continue to encourage p.o. intake. Reviewed his orders. At the present time I do not see any change at this point this. cc: Ramsey Candelario MD
[2016-12-01] MEDS: IMODIUM PO PRN (00:34)
[2016-12-01] MEDS: UROXATRAL PO SCH ×3 (00:34→19:49)
[2016-12-01] MEDS: HYTRIN PO SCH ×3 (00:34→19:49)
[2016-12-01] MEDS: MERREM 1 GM in NS 50 ML IV SCH ×3 (00:35→17:13)
[2016-12-01] MEDS: XARELTO PO SCH (05:09)
[2016-12-01] MEDS: NS 1,000 ML IV SCH ×3 (06:41→19:33)
--- NOTE | 2016-12-01 07:40 | Diag Imaging Result Doc PS360 ---
CHEST-1 VIEW - 12/01/2016 INDICATION: pneumonia TECHNIQUE: COMPARISON: 11/26/2016 FINDINGS: There is a right perihilar infiltrate that has improved since the prior exam. Heart size remains top normal. No pneumothorax or large effusion. IMPRESSION: Improvement in the right perihilar infiltrate/pneumonia. Continued follow-up recommended. Electronically signed by Parminder Chambers 12/01/2016 7:38 AM
[2016-12-01] MEDS: NEPHROCAPS PO SCH (10:39)
[2016-12-01] MEDS: ICAR-C PO SCH (10:39)
[2016-12-01] MEDS: KLOR-CON PO SCH (10:39)
--- NOTE | 2016-12-01 16:47 | PROGRESS NOTE ---
DATE: 12/01/2016 PRESENT ILLNESS: The patient has a right lower lobe pneumonia and a urinary tract infection with Pseudomonas and an extended spectrum beta lactamase producing E coli. MEDICATIONS: This is day 6 of treatment with meropenem. PHYSICAL EXAMINATION: Vital Signs: Temperature is 98.4 degrees, pulse 48, respirations 24, blood pressure 120/41. General: This is a chronically ill-appearing elderly male who is in no acute distress. He is lethargic today. Lungs: Clear to auscultation. Cardiovascular: Heart tones were distant. At times they were regular, at other times I thought they were irregular. Abdomen: Soft and nontender. LAB AND X-RAY: There is no new lab or x-ray today. ASSESSMENT AND PLAN: We are going to see about getting the patient back to [facility]. I have ordered that a PICC be placed tomorrow. I have ordered a CBC and creatinine. COMORBIDITIES: Include he is elderly, he had bladder cancer recently, had hip surgery and he previously has had urinary tract infections. The orders at [facility] that I just wrote include meropenem 1 g IV every 8 hours for 10 days, CBC with differential and creatinine on ThursdayDecember 08 of this year in a.m., also I have written for the PICC to be removed after the last dose of meropenem. cc: Corona Muhammad MD
[2016-12-01 16:53] LABS: INR 1.04
--- NOTE | 2016-12-01 17:20 | PROGRESS NOTE ---
DATE: 12/01/2016 SUBJECTIVE: Mr. Lakhani he is feeling better, he is more awake and alert eating. OBJECTIVE: Vital signs: Temperature 98.4 degrees, pulse 40, respirations 24, blood pressure 120/41. Lungs: Are clear in all lung rondon. Cardiovascular: Regular rhythm and rate without murmur or S3. Abdomen: Soft. Skin: Is warm and dry. Urine output 1500 mL. LAB: Reviewed from , will repeat some more lab tomorrow. His chest x-ray from today improvement in the right perihilar infiltrate pneumonia. ASSESSMENT AND PLAN: 1. Right lower lobe pneumonia and urinary tract infection with Pseudomonas, extended spectrum beta lactamase producing Escherichia coli. This is day 6 of antibiotics, plan to send him back to [facility], continue antibiotics, I think clinically he is better. 2. Lethargy and confusion which is better. 3. Recent history of surgery hip fracture dislocation of that hip so continue physical therapy. 4. Transitional cell bladder cancer years ago. 5. History of benign prostatic hypertrophy. 6. History of bundle branch block. Lane catheter was put back in place, trouble voiding. He is on a regular diet. Reviewed his orders I do not see any change at this point, I think we could try and shoot to get him back to [facility] on Thursday or in 2 days. cc: Ramsey Candelario MD
[2016-12-02] MEDS: MERREM 1 GM in NS 50 ML IV SCH ×2 (00:18→09:08)
[2016-12-02] MEDS: HYTRIN PO SCH (00:18)
[2016-12-02] MEDS: UROXATRAL PO SCH (00:19)
[2016-12-02 05:35] LABS: MANUAL DIFF NEEDED? NO
[2016-12-02 05:37] LABS: BASO% 0.5 % (0.0-0.8); EOS# 0.32 X1000 (0.0-0.7); EOS% 3.7 % (0.0-10.0); HEMATOCRIT 34.1 % (42.0-52.0); HEMOGLOBIN 10.9 g/dL (14.0-18.0); IMM GRAN# 0.04 X1000 (0.0-0.04); IMM GRAN% 0.5 % (0.0-0.5); LYMPH# 2.71 X1000 (1.2-3.4); LYMPH% 31.7 % (20.5-51.1); MCV 84.6 FL (81-99); MONO# 0.73 X1000 (0.11-0.59); MONO% 8.5 % (1.7-9.3); MPV 9.4 FL (7.4-10.4); NEUT% 55.1 % (42.2-75.2); PLT 478 X1000 (130-400); RBC 4.03 XMIL (4.7-6.1)
[2016-12-02] MEDS: XARELTO PO SCH (05:41)
[2016-12-02 06:05] LABS: AGAP 14; BUN 13 mg/dL (8-22); CALCIUM 8.4 mg/dL (8.8-10.2); CHLORIDE 108 mmol/L (98-107); COSMO 284; POTASSIUM 4.5 mmol/L (3.5-5.1); SODIUM 143 mmol/L (136-145); TCO2 21 mmol/L (25-35)
[2016-12-02] MEDS ORDERED: NS 250 ML ONE (07:20)
[2016-12-02] MEDS: NS 1,000 ML IV SCH (07:36)
[2016-12-02] MEDS: KLOR-CON PO SCH (09:08)
[2016-12-02] MEDS: NEPHROCAPS PO SCH (09:08)
[2016-12-02] MEDS: ICAR-C PO SCH (09:08)
[2016-12-02 14:07] VITALS: BP 107/52
--- NOTE | 2016-12-02 15:53 | DISCHARGE SUMMARY ---
ADMISSION DATE: 11/23/2016 DISCHARGE DATE: 12/02/2016 CONSULTATIONS: Dr. Corona uMhammad with Infectious Disease. PERTINENT PROCEDURES: 1. Abdomen and pelvis CT showed constipation and diverticulosis coli, possibility stercoral colitis particularly in the rectum could not be excluded. Bibasilar atelectasis with pneumonia versus pulmonary edema. 2. Hip/pelvis x-ray showed no acute disease or complications. 3. Chest x-ray showed subsegmental atelectasis in the right lower lobe. 4. Final chest x-ray on 12/01 showed improvement in the right perihilar infiltrate pneumonia. DISCHARGE DIAGNOSES: 1. Right lower lobe pneumonia. 2. Urinary tract infection with extended-spectrum beta-lactamase producing Escherichia coli. The patient will continue meropenem 1 g IV every 8 hours for 10 days. CBC with differential and creatinine on December 08 and a written order for the PICC line to be removed after the last dose of meropenem by Dr. Corona Muhammad. The patient is being discharged back to [facility]. 3. Status post left bipolar hemiarthroplasty with previous dislocation. He was evaluated by Orthopedics and his hip and pelvis x-ray show bilateral femoral head prosthetics with no fracture or dislocation. No hardware loosening. 4. Bladder cancer recently. 5. Benign prostatic hypertrophy, continue medications. 6. Depression, continue home medications. 7. Confusion, improved. 8. History of a right bundle branch block. Aware. HOSPITAL COURSE: Mr. Lakhani is a 81-year-old male with past medical history of transitional cell cancer of the bladder years ago, benign prostatic hypertrophy, extended- spectrum beta-lactamase urinary tract infection, bradycardia, right bundle block which was recently diagnosis. He came to the hospital complaining of abdominal pain. According to the patient and his daughter, he has had decreased p.o. intake over the last week due to abdominal pain. He vomited on the morning of his admission. He started having diarrhea approximately 4 times. He also has seemed more confused and lethargic than usual. In the ED, the patient was initiated on Flagyl and Levaquin, as well as ceftriaxone. Blood cultures were also obtained. He was admitted for stercoral diverticulosis as well as a urinary tract infection. He has had a Lane catheter in place for several weeks secondary to urinary retention and failed attempts to remove the Lane catheter. He also recently underwent a right and left bipolar hemiarthroplasty by Dr. Shukla with recent dislocation. He had a pelvis x-ray that was benign. He was not hurting or complaining of any pain. He did have good range of motion. He was evaluated by Orthopedics. The patient was also found to have bibasilar infiltrates following pneumonia. Dr. Corona Muhammad was brought on the case. The patient was placed on meropenem, but his urine grew out pseudomonas and ESBL producing E. coli UTI. Mr. Lakhani mentation has improved. He is more awake and alert. He is eating better. His pneumonia is improving on his chest x-ray, and he will be discharged back to [facility] with IV antibiotics, meropenem for 10 more days. Vital signs at time of discharge, temperature is 98 degrees, heart rate 92, respirations 19, blood pressure 107/52, 100% on room air. DISCHARGE DIET: Regular. DISCHARGE MEDICATIONS: 1. Tylenol 325 mg p.o. p.r.n. 2. Uroxatral 10 mg p.o. at bedtime. 3. Vitamin D 50,000 units p.o. 7 days. 4. Icar C 1 each p.o. daily. 5. Megace liquid 400 mg p.o. daily. 6. Adult 1 daily gummies, 1 tab p.o. daily. 7. Oxy IR 5 mg p.o. q.3 hours p.r.n. 8. MiraLAX 17 g p.o. daily. 1. Hytrin 10 mg p.o. at bedtime. 2. Meropenem 1 g IV every 8 hours for the next 10 days. DISCHARGE INSTRUCTIONS: Mr. Lakhani is being discharged back to [facility] where he will continue with IV antibiotics for 10 days and on 12/08 after his last dose, there is a written order for the PICC line to be removed. The patient can return to the ED for any worsening of symptoms. Dictated by ADORE Bermudez for Ravi Quinteros MD cc: Ravi Quinteros MD Patient and examined by me. Clinically stable for discharge. Follow instructions as indicated above. MTDD
--- NOTE | 2016-12-03 03:29 | PROGRESS NOTE ---
DATE: 12/02/2016 ADDENDUM: We are changing his antibiotics to ertapenem 1 g IV daily and Levaquin 500 mg p.o. daily for a total of 10 days. I have ordered a CBC, creatinine to be drawn on Thursday the , and the patient to have the PICC removed after the last dose of ertapenem. cc: Corona Muhammad MD
== END 2016-12-02 16:02 ==
LOC: ED 15:19 → 3N 18:57 → SUATTDRO 18:57
PROVIDERS: ATTEND Internal Medicine